=== PATIENT | female | born 1990 | race Caucasian/White ===

== ENCOUNTER 2019-11-25 20:35 | Emergency (ER) | payer BC, SELFPAY ==
[2019-11-25 20:36] VITALS: BP 121/82; PULSE 68; RESP 16; TEMP 36.9; O2SAT 97; BMI 28.3
[2019-11-25 20:50] VITALS: BP 117/77; PULSE 103; RESP 18; TEMP 36.8; O2SAT 99; BMI 28.3
--- NOTE | 2019-11-25 20:58 | HMH.EDUTC ---
[facility] [place]position Condition on Discharge: Good Time of Disposition: 21:11 <Shalini Pal E - Last Filed: 11/25/19 20:58> <Afshin Sanchez Addie - Last Filed: 11/25/19 23:41> Clinical Impression: Abdominal pain Qualifiers: Abdominal location: unspecified location Qualified Code(s): R10.9 - Unspecified abdominal pain Disposition: Home, Self-Care Instructions: DI for Acute Abdomen Additional Instructions: will need pcp and gi consult - recheck if needed Prescriptions: Dicyclomine HCl [Bentyl 10mg capsule] 10 mg PO TID #15 cap Transmission Status: Pending to [id number] Referrals: PCP,No [Primary Care Provider] - Medical Decision Making - Braxton Inquiry Pt receiving controlled substance: No Braxton was queried for this patient: No <Shalini Pal - Last Filed: 11/25/19 20:58> - Medical Records Medical records reviewed: Yes: I reviewed the patient's medical records. - Lab Data Lab results reviewed: Yes: I reviewed the patient's lab results. Result diagrams: 11/25/19 21:20 11/25/19 21:20 - CT Data CT Scan: Abdomen, Pelvis Time Received: 23:[address] Reviewed: Yes: I have viewed the radiologist's interpretation Preliminary Findings: Abnormal (nonspecific) <Afshin Sanchez Addie - Last Filed: 11/25/19 23:41> Vital Signs: 11/25/19 20:36 11/25/19 20:50 Temperature 98.5 F 98.3 F Temperature Source Oral Temporal Artery Scan Pulse Rate [Right Brachial] 68 103 H Respiratory Rate 16 18 Blood Pressure [Right Arm] 121/82 117/77 Blood Pressure Mean [Right Arm] 95 90 Blood Pressure Source [Right Arm] Automatic Cuff Automatic Cuff Blood Pressure Position [Right Arm] Sitting Sitting 02 Sat by Pulse Oximetry 97 99 Oxygen Delivery Method Room Air Room Air - Lab Data Lab Results 11/25/19 20:42: Urine Color Yellow, Urine Appearance Clear, Urine pH 6.0, Ur Specific [place] 1.025, Urine Protein Negative, Urine Glucose (UA) Negative, Urine Ketones Trace, Urine Blood 2+, Urine Nitrate Negative, Urine Bilirubin Negative, Urine Urobilinogen 1, Ur Leukocyte Esterase Trace, Tst Clinic Negative 11/25/19 21:20: WBC 7.7, RBC 4.23, Hgb 13.9, Hct 40.8, MCV 96.6, MCH 32.9 H, MCHC 34.1, RDW 12.6, Plt Count 329, MPV 7.5, Neut % (Auto) 47.6, Lymph % (Auto) 43.3, [place] % (Auto) 5.9, Eos % (Auto) 2.6, Baso % (Auto) 0.6, Neut # (Auto) 3.7, Lymph # (Auto) 3.3, [place] # (Auto) 0.5, Eos # (Auto) 0.2, Baso # (Auto) 0.1 11/25/19 21:20: Sodium 141, Potassium 3.9, Chloride 106, Carbon Dioxide 27, Anion Gap 11.9, BUN 15, Creatinine 0.80, Estimated Creat Clear 120, Estimated GFR 85, Est GFR ( Amer) 103, Glucose 106 H, Calcium 9.2, Total Bilirubin 0.4, AST 26, ALT 25, Alkaline Phosphatase 73, Total Protein 7.1, Albumin 4.3, Globulin 2.8, Albumin/Globulin Ratio 1.5, Amylase 82, Lipase 155 Orders (Tests/Meds): ED MEDICATIONS Generic Name Dose Route Start Last Admin Trade Name Freq PRN Reason Stop Dose Admin Sodium Chloride 1,000 mls @ 999 mls/hr 11/25/19 21:30 Sod Chlor 0.9% 1000ml Bag IV 11/25/19 22:30 .Q1H1M KEN Sodium Chloride 8 ml 11/25/19 21:23 11/25/19 21:34 Sodium Chloride 0.9% 10ml Vial IV 12/25/19 21:22 8 ml NEEDED PRN Administration dilute pepcid Discontinued Medications Generic Name Dose Route Start Last Admin Trade Name Freq PRN Reason Stop Dose Admin Famotidine 20 mg 11/25/19 21:23 11/25/19 21:34 Pepcid 20mg/2ml Vial IV 11/25/19 21:24 20 mg ONCE ONE Administration Ioversol 75 ml 11/25/19 21:42 11/25/19 21:43 Rad-Optiray 350 100ml Vial IV 11/25/19 21:43 75 ml ONCE ONE Administration Protocol Ketorolac Tromethamine 30 mg 11/25/19 21:23 11/25/19 21:34 Toradol 30mg/Ml Vial IV 11/25/19 21:24 30 mg ONCE ONE Administration Metoclopramide HCl 10 mg 11/25/19 21:23 11/25/19 21:34 Reglan 10mg/2ml Vial IVP 11/25/19 21:24 10 mg ONCE ONE Administration Morphine Sulfate 4 mg 11/25/19 23:30 11/25/19 23:32 Morphine 4mg/Ml Syr
[2019-11-25 21:00] LABS: Apearance,Urine Clear (Clear); Bilirubin,Urine Negative (Negative); Blood, Urine 2+ (Negative); Color,Urine Yellow (Yellow); Glucose,Urine (UA) Negative (Negative); Ketones,Urine TRACE (Negative); Protein,Urine Negative (Negative); Specific Gravity, Urine 1.025 (1.005-1.030); UTC Leukocyte Esterase,Urine Trace (Negative); UTC Nitrate,Urine Negative (Negative); UTC Pregnancy Test, Urine Negative (Negative); Urobilinogen,Urine 1 EU/dl (0.2)
--- NOTE | 2019-11-25 21:11 | CT_ITS ---
PROCEDURE: CT ABDOMEN PELVIS W CON CLINICAL INDICATION: LLQ pain abdominal pain, left lower quadrant pain and diarrhea COMPARISON: ABDPELW/O CT ABD PELVIS W/O CONTRAST from 02/06/2014 TECHNIQUE: IV Contrast: 75ML OPTIRAY 350 Oral Contrast None Axial images obtained with sagittal and coronal reformats. All CT scans at the facility use one or more dose reduction, viz: automated exposure control, ma/kV adjustment per patient size (including targeted exams where dose is matched to indication, i.e. head), or iterative reconstruction technique. FINDINGS: LOWER THORAX: No acute finding ABDOMEN & PELVIS: The liver, spleen, pancreas, adrenal glands, have an unremarkable appearance. No renal or ureteral calculi. Sub cm hypodensity is present in the left kidney anteriorly nonspecific too small to categorize possibly related to cyst. There is a moderate amount of retained colonic feces. No intestinal obstruction or free air. There are fluid-filled loops of small bowel with questionable bowel wall enhancement in the lower abdomen raising the suspicion enteritis. No evidence of appendicitis. There is dilatation of the adnexal veins left greater than right and left gonadal vein which may be seen with pelvic congestion syndrome IMPRESSION: 1. Possible enteritis 2. Moderate amount of retained colonic feces. 3. Prominent adnexal veins and left gonadal vein which may be seen with pelvic congestion syndrome Dictated by: Yayo Mittal MD 11/26/2019 05:53 Electronically signed by Yayo Mittal MD in [place] 11/26/2019 05:53
[2019-11-25 21:31] LABS: Basophils # 0.1 K/mm3 (0-0.2); Basophils % 0.6 % (0.1-2.0); Eosinophils # 0.2 K/mm3 (0.0-0.4); Eosinophils % 2.6 % (0.1-12.0); Hematocrit 40.8 % (37.0-47.0); Hemoglobin 13.9 g/dL (12.2-16.2); Lymphocytes # 3.3 K/mm3 (0.7-4.5); Lymphocytes % 43.3 % (10-50); Mean Corpuscular HGB Conc 34.1 g/dL (31.8-35.4); Mean Corpuscular Hemoglobin 32.9 pg (27.0-31.2); Mean Corpuscular Volume 96.6 fl (81-99); Mean Platelet Volume 7.5 fl (7.4-10.4); Monocytes # 0.5 K/mm3 (0.1-1.0); Monocytes % 5.9 % (1.7-9.3); Neutrophils # 3.7 K/mm3 (1.8-7.8); Neutrophils % 47.6 % (37.0-80.0); Platelet Count 329 K/mm3 (142-424); Red Blood Count 4.23 M/mm3 (4.20-5.40); Red Cell Distribution Width 12.6 % (11.5-17.5); White Blood Count 7.7 K/mm3 (4.8-10.8)
[2019-11-25 21:37] LABS: Chloride 106 mmol/L (98-107)
[2019-11-25 21:38] LABS: Potassium 3.9 mmoL/L (3.5-5.1); Sodium 141 mmol/L (136-145)
[2019-11-25 21:40] LABS: Alanine Aminotransferase 25 U/L (12-78); Alkaline Phosphatase 73 U/L (38-126); Amylase 82 U/L (30-110); Aspartate Amino Transferase 26 U/L (14-36); Bilirubin,Total 0.4 mg/dl (0.2-1.3); Blood Urea Nitrogen 15 mg/dl (7-17); Creatinine Clearance Estimated 120 mL/min (50-200); Estimated Glomerular Filt Rate 85 ml/min (>60); GFR (African American) 103 ML/MIN (>60); Lipase 155 U/L (23-300)
[2019-11-25 21:41] LABS: Albumin Level 4.3 g/dl (3.5-5.0); Albumin/Globulin Ratio 1.5 (1.1-1.8); Calcium 9.2 mg/dl (8.4-10.2); Globulin 2.8 g/dL (1.3-3.2); Glucose 106 mg/dl (74-100); Total Protein,Serum 7.1 g/dl (6.3-8.2)
[2019-11-25 21:49] LABS: Anion Gap 11.9 mEq/L (5-15); Carbon Dioxide 27 mmol/L (22.0-30.0)
--- NOTE | 2019-11-25 23:23 | PC.NURSE ---
pt ambulated to the restroom independently at this time
[2019-11-25 23:47] VITALS: BP 134/70; PULSE 67; RESP 14; TEMP 36.9; O2SAT 100
== END 2019-11-25 23:49 | disposition home or self-care (01) ==
LOC: UTC 20:42 → ER 21:03
PROVIDERS: Nurse Practitioner; Emergency Provider Emergency Medicine
DX: R10.32 Left lower quadrant pain (principal); Z88.1 Allergy status to other antibiotic agents; R73.9 Hyperglycemia, unspecified
CPT/HCPCS: 74177; 80053; 81003; 81025; 82150; 83690; 85025; 96365; 96375; 99284; J2405; Q9967

== ENCOUNTER → 2020-08-03 16:39 | Outpatient (CLI) | payer BC, SELFPAY ==
[2020-08-03 18:01] LABS: HCG Qualitative, Serum Negative (Negative)
[2020-08-03 18:59] LABS: Coronavirus 19 IgG Antibody Negative (Negative); Coronavirus 19 IgM Antibody Negative (Negative)
== END ==
PROVIDERS: Visit Provider Internal Medicine Gastroenterology
DX: Z01.818 Encounter for other preprocedural examination (principal); Z20.822 Contact with and (suspected) exposure to COVID-19; Z12.11 Encounter for screening for malignant neoplasm of colon
CPT/HCPCS: 36415; 84703; 86328

== ENCOUNTER 2020-08-05 11:05 | Day surgery (SDC) | payer BC, SELFPAY ==
[2020-08-03 09:15] VITALS: BMI 26.5
[2020-08-05] VITALS (9 sets, daily range): BP systolic 98–130; BP diastolic 53–72; PULSE 58–78; RESP 14–18; TEMP 36.6–36.8; O2SAT 97–99
--- NOTE | 2020-08-05 12:14 | HMH.ANESCL ---
[facility] Anesthesia Checklist - Patient Identification Patient Identification: Arm Band - Structural Data Admitted From: Home Planned Operative Procedure/s: Colonsocopy Consent for Planned Operative Procedure(s) Verified: Yes - NPO Status Verified Time NPO: 00:00 - Airway Assessment Dentition: Good Dentition - Neurological Assessment Level of Consciousness: Awake Hx Seizures: No Numbness or tingling in extremities: No - Anesthesia Plan Anesthesia Risk discussed: Yes Anesthesia Plan: Verified ASA Class: I Anesthesia Type: MAC [facility] History I have reviewed the patient's past medical history: Yes Medical History: Denies:: Cancer, Diabetes Mellitus Type 1, Diabetes Mellitus Type 2, Internal Pacemaker, MRSA, Seizures *Have you ever received a pneumonia vaccine?: No *Have you received a flu vaccine this season?: Yes Anesthesia experience/problems:: None Other Surgeries: Yes: No Previous Surgery. No: Pacemaker Amputation: No Fractures: No - *Social History Last grade of school completed: Advanced degree Smoking Status: Never smoker Alcohol Intake: never Substance Use Type: denies use *Occupational Status:: employed Housing: house Household Members: spouse *Travel in the last 8 weeks: None Family Hx:: Non-contributory
--- NOTE | 2020-08-05 12:38 | HMH.PROC ---
[facility] Procedure Note Procedure Note:: Colonoscopy Procedure Report: Colonoscopy Endoscopist: [place] Valle II, MD Referring physician: None Date of Procedure: August 05, 2020 Equipment: Olympus 190 variable stiffness pediatric colonoscope Sedation: MAC sedation Indication: Mrs. Calvin is a 30-year-old female with left lower quadrant abdominal pain and a change in her bowel habits. She does report incomplete defecation. She also has loose and liquid stools that are not formed. Her CAT scan of the abdomen showed a marked amount of fecal retention. She improved a little bit with dicyclomine (Bentyl). She reports no constipation but does have obstipation. She has noted mucus with her stool but no blood. She does have moderate gassiness and bloating. She reports no abdominal pain or weight loss. She has no family history of colitis, Crohn's disease or colon cancer. She did have a negative IBD and celiac panels. This is her first colonoscopy performed for diagnostic purposes. Her CBC showed no anemia and she had normal liver and pancreatic chemistries on her chemistry panel. Procedure: Prior to the procedure, a history and physical exam was performed, and patient's medications and allergies were reviewed. The risks, benefits and alternatives of the sedation and procedure were discussed with the patient. All questions were answered and informed consent was obtained. The patient was brought to the procedure room. Patient identification and proposed procedure were verified by the physician and the nurse. The patient was placed in a left lateral decubitus position and the scope was passed under direct vision. Throughout the procedure, the patient's blood pressure, pulse, and oxygen saturations were monitored continuously. The colonoscopy was accomplished without difficulty. The patient tolerated the procedure well. Findings: On digital rectal examination there was normal rectal tone. There were no external hemorrhoids. The colonoscope was introduced through the anal canal to the rectum and advanced to the cecum. The ileocecal valve and appendiceal orifice were identified. The scope was advanced a short distance into the ileum which appeared grossly normal. The scope was then withdrawn into the colon. The cecum, ascending, transverse, descending, sigmoid and rectum were grossly normal. There was some colonic redundancy with colonic dysmotility. There were no mucosal abnormalities identified. Upon retroflexion within the rectum there were grade 1 internal hemorrhoids.The preparation was good throughout with [place] Preparation Score of 8 out of 9. The cecal time was 12 minutes. Impression: 1. Normal colonoscopy with intubation of the terminal ileum 2. Colonic redundancy with colonic dysmotility 3. Grade 1 internal hemorrhoids Plan: I will discuss the findings with the patient and family. I would avoid MiraLAX but just continue bulk fiber. I would consider continuation of dicyclomine or adding Viberzi. We will discuss dietary measures and treatment options.
--- NOTE | 2020-08-05 12:41 | HMH.ANESI ---
[facility] Anesthesia Record Part I Intake, IV Amount: 200 Estimated blood loss (mL): 0 Urine output (mL): 0 Blood Pressure: 130/72 SaO2: 99 Pulse Rate: 77 Respiratory Rate: 14 Temperature: 98 F Patient is:: Drowsy Stable to PACU at:: 12:39
--- NOTE | 2020-08-05 13:57 | P.PN_ITS ---
[facility] Anesthesia Record Part II Discharge Time: 13:26 Destination: Surgical Day Care (OP Surgery) PACU nurse assessment reviewed?: Yes Patient Condition:: Good Anesthesia Complications:: None Swallowing reflex intact?: Yes Cyanosis?: No Blood Pressure: 123/70 Pulse Rate: 71 Temperature: 98.3 F Mental Status: Alert & Oriented Pain level:: 0 Nausea and/or vomitting:: None Intake, IV Amount: 200
== END 2020-08-05 13:29 | disposition home or self-care (01) ==
PROVIDERS: Visit Provider Internal Medicine Gastroenterology
PROC: 0DJD8ZZ Inspection of Lower Intestinal Tract, Via Natural or Artificial Opening Endoscopic (ICD-10-PCS; CPT 45378; principal; 2020-08-05 12:00)
DX: K59.01 Slow transit constipation (principal); K56.2 Volvulus; K64.0 First degree hemorrhoids; Z85.07 Personal history of malignant neoplasm of pancreas; Z79.899 Other long term (current) drug therapy; Z88.1 Allergy status to other antibiotic agents
CPT/HCPCS: 45378

== ENCOUNTER 2021-01-02 09:15 | Emergency (ER) | payer BC, SELFPAY ==
[2021-01-02 09:15] VITALS: BP 122/74; PULSE 74; RESP 16; TEMP 36.8; O2SAT 98; BMI 27.1
--- NOTE | 2021-01-02 09:35 | HMH.EDUTC ---
[facility] [place] Clinical Impression: Viral syndrome, Bronchitis Pharyngitis Qualifiers: Pharyngitis/tonsillitis etiology: unspecified etiology Qualified Code(s): J02.9 - Acute pharyngitis, unspecified Disposition: Home, Self-Care Condition on Discharge: Good Instructions: DI for Acute Bronchitis, DI for COVID-19 (Suspected or Confirmed ), Preventing the Spread of Coronavirus Discharge Instructions Additional Instructions: Drink plenty of fluids. Take tylenol or ibuprofen for pain or fever. Take the medications as directed. Follow up with your regular doctor. GO TO THE ER FOR ANY WORSENING SYMPTOMS Quarantine until you know the results of your covid-19 test. If it is positive, the health department should call you and give you further instructions about your length of Quarantine and other thing. The cough medication (promethazine dm) will make you drowsy, so don't drive or operate heavy machinery after taking it. Prescriptions: Brompheniramine/Pseudoephed/Dm [Bromfed Dm Cough Syrup] 5 ml PO Q6HP PRN #240 syrup PRN Reason: Cough Transmission Status: Received by [id number] Ondansetron [Zofran 4mg ODT] 4 mg PO Q8HP PRN #20 tab.rapdis PRN Reason: Nausea Transmission Status: Received by [facility] Cefdinir [Omnicef 300mg Capsule] 300 mg PO BID #20 cap Transmission Status: Received by [facility] Referrals: Provider,Referral, [Primary Care Provider] - Forms: Work/School Release Time of Disposition: 09:39 Medical Decision Making - Medical Records Medical records reviewed: No: I reviewed the patient's medical records. - Braxton Inquiry Pt receiving controlled substance: No Vital Signs: 01/02/21 09:15 01/02/21 09:54 Temperature 98.3 F 98.5 F Temperature Source Oral Oral Pulse Rate 84 Pulse Rate [Right] 74 Respiratory Rate 16 16 Blood Pressure 124/70 Blood Pressure [Right Arm] 122/74 Blood Pressure Mean [Right Arm] 90 Blood Pressure Source Automatic Cuff Blood Pressure Source [Right Arm] Automatic Cuff Blood Pressure Position Sitting Blood Pressure Position [Right Arm] Sitting 02 Sat by Pulse Oximetry 98 Oxygen Delivery Method Room Air - Lab Data Lab results reviewed: Yes: I reviewed the patient's lab results. Orders (Tests/Meds): ORDERS Category Date Time Status Full Resp Panel w/COVID ([facility]) Routine Lab 01/02/21 09:40 [place] [facility] [place] - General Stated complaint: sore throat, body aches, chills Time Seen by Provider: 01/02/21 09:20 Mode of Arrival: Ambulatory Source of Information: Patient Limitations: No Limitations Description of Symptoms (Recalled from Triage Doc. by RN): pt c/o body aches, cough, congestion, and overall not feeling well HEENT Symptoms (Recalled from RN notes): No Resp Symptoms (Recalled from RN notes): No Skin Symptoms (Recalled from RN notes): No MS Symptoms (Recalled from RN notes): No Functional Status (Recalled from RN notes): na - History of Present Illness Provider Complaint: She states that for the past 2 days she has had sinus and chest congestion, scratchy sore throat, and she has had chilling at night. She denies documented fever. She has not been vaccinated against covid-19. - Related Data Home Medications Medication Instructions Recorded Confirmed Norelgestromin/Ethin.estradiol 1 each TD NEEDED PRN 11/25/19 08/05/20 [Xulane Patch] Dicyclomine HCl [Bentyl 10mg 10 mg PO TID 08/02/20 08/05/20 capsule] Previous Rx's Medication Instructions Recorded Brompheniramine/Pseudoephed/Dm 5 ml PO Q6HP PRN #240 syrup 01/02/21 [Bromfed Dm Cough Syrup] Cefdinir [Omnicef 300mg Capsule] 300 mg PO BID #20 cap 01/02/21 Ondansetron [Zofran 4mg ODT] 4 mg PO Q8HP PRN #20 tab.rapdis 01/02/21 Allergies Allergy/AdvReac Type Severity Reaction Status Date / Time amoxicillin [AMOXICILLIN] Allergy Mild Verified 08/02/20 14:35 erythromycin base Allergy Mild Verif
[2021-01-02 09:54] VITALS: BP 124/70; PULSE 84; RESP 16; TEMP 36.9; O2SAT 98
[2021-01-02 09:58] LABS: Adenovirus,PCR Not Detected (NotDetected); Bordetella Pertussis Not Detected (NotDetected); Chlamydophila Pneumoniae, PCR Not Detected (NotDetected); Coronavirus 229E Not Detected (NotDetected); Coronavirus NL63 Not Detected (NotDetected); Coronavirus OC43 Not Detected (NotDetected); Coronovirus HKU1,PCR Not Detected (NotDetected); Human Metapneumovirus Not Detected (NotDetected); Influenza A, PCR Not Detected (NotDetected); Influenza AH1, 2009 Not Detected (NotDetected); Influenza AH1, PCR Not Detected (NotDetected); Influenza AH3,PCR Not Detected (NotDetected); Influenza B, PCR Not Detected (NotDetected); Mycoplasma Pneumoniae, PCR Not Detected (NotDetected); Parainfluenza 1, PCR Not Detected (NotDetected); Parainfluenza 2, PCR Not Detected (NotDetected); Parainfluenza 3, PCR Not Detected (NotDetected); Parainfluenza 4, PCR Not Detected (NotDetected); Respiratory Syncytial Virus Not Detected (NotDetected); Rhinovirus/Enterovirus Not Detected (NotDetected)
[2021-01-02 11:26] LABS: Coronavirus 19, PCR Detected (NotDetected)
--- NOTE | 2021-01-02 11:47 | PC.NURSE ---
Notified pt of positive covid results
[2021-01-03 09:51] LABS: UTC Strep Screen (Rapid) Negative (Negative)
== END 2021-01-02 09:54 | disposition home or self-care (01) ==
PROVIDERS: Emergency Provider Nurse Practitioner Family
DX: U07.1 COVID-19 (principal); J20.9 Acute bronchitis, unspecified
CPT/HCPCS: 87581; 87633; 87798; 87880; 99203; G0463

== ENCOUNTER 2021-03-22 11:21 | Emergency (ER) | payer BC, SELFPAY ==
[2021-03-22 13:03] VITALS: BP 122/75; PULSE 81; RESP 16; TEMP 36.8; O2SAT 100; BMI 25.8
[2021-03-22 13:10] LABS: UTC Strep Screen (Rapid) Negative (Negative)
--- NOTE | 2021-03-22 13:37 | HMH.EDUTC ---
[facility] [place] Clinical Impression: Viral syndrome Pharyngitis Qualifiers: Pharyngitis/tonsillitis etiology: unspecified etiology Qualified Code(s): J02.9 - Acute pharyngitis, unspecified Disposition: Home, Self-Care Condition on Discharge: Good Instructions: DI for Viral Syndrome, DI for COVID-19 (Suspected or Confirmed ), Preventing the Spread of Coronavirus Discharge Instructions Additional Instructions: Drink plenty of fluids. Take tylenol or ibuprofen for pain or fever. Take the medications as directed. Follow up with your regular doctor. GO TO THE ER FOR ANY WORSENING SYMPTOMS Quarantine until you know the results of your covid-19 test. If it is positive, the health department should call you and give you further instructions about your length of Quarantine and other things. Notify your school or workplace of your results and follow their instructions regarding return to work/school. Prescriptions: Brompheniramine/Pseudoephed/Dm [Bromfed Dm Cough Syrup] 5 ml PO Q6HP PRN #240 ml PRN Reason: Cough Transmission Status: Received by [facility] predniSONE [Deltasone 10mg tablet] 10 mg PO BID 4 Days #8 tab Transmission Status: Received by [facility] Referrals: Provider,Referral, [Primary Care Provider] - Forms: Work/School Release Time of Disposition: 13:44 Medical Decision Making - Medical Records Medical records reviewed: No: I reviewed the patient's medical records. - Braxton Inquiry Pt receiving controlled substance: No Vital Signs: 03/22/21 13:03 03/22/21 13:50 Temperature 98.3 F 98.3 F Temperature Source Oral Pulse Rate 81 Pulse Rate [Left] 81 Respiratory Rate 16 16 Blood Pressure 122/75 Blood Pressure [Right Arm] 122/75 Blood Pressure Mean [Right Arm] 90 02 Sat by Pulse Oximetry 100 - Lab Data Lab results reviewed: Yes: I reviewed the patient's lab results. Lab Results 03/22/21 13:08: Strep Scn Rapid Clinic Negative 03/22/21 13:44: Chlamy pneumoniae PCR Not detected, Adenovirus (PCR) Not detected, B. pertussis DNA (PCR) Not detected, Coronavirus OC43 (PCR) Not detected, Coronavirus HKU1 (PCR) Not detected, Coronavirus 229E (PCR) Not detected, SARS-CoV-2 (PCR) Not detected, Coronavirus NL63 (PCR) Not detected, Human Metapneumovir PCR Not detected, Influenza A (H1) PCR Not detected, Influ A (H1N1/09) PCR Not detected, Influenza A (H3) PCR Not detected, Influenza Type A (PCR) Not detected, Influenza Type B (PCR) Not detected, M. pneumoniae (PCR) Not detected, Parainfluenza 1 (PCR) Not detected, Parainfluenza 2 (PCR) Not detected, Parainfluenza 3 (PCR) Not detected, Parainfluenza 4 (PCR) Not detected, RSV (PCR) Not detected, Entero/Rhino (PCR) Not detected Orders (Tests/Meds): ORDERS Category Date Time Status Strep Screen Confirmation Stat Micro 03/22/21 13:08 Received [facility] [place] H[place] - General Stated complaint: bilateral ear pain/pressure Time Seen by Provider: 03/22/21 13:37 Mode of Arrival: Ambulatory Source of Information: Patient Limitations: No Limitations Description of Symptoms (Recalled from Triage Doc. by RN): pt states her ears feel full. pt also c/o a sore throat. ongoing x2 days. HEENT Symptoms (Recalled from RN notes): Yes (fluid on ears and sore throat) Resp Symptoms (Recalled from RN notes): No Skin Symptoms (Recalled from RN notes): No MS Symptoms (Recalled from RN notes): No Functional Status (Recalled from RN notes): na - History of Present Illness Provider Complaint: She c/o sore throat and ear pressure for the past 2 days. She denies chest congestion. She has had a dry cough at times. She has not been vaccinated against covid-19. She works as a nurse in a hospital. - Related Data Home Medications Medication Instructions Recorded Confirmed Norelgestromin/Ethin.estradiol 1 each TD NEEDED PRN 11/25/19 08/05/20 [Xulane Patch] Dicyclomine HCl [Bentyl 10mg 10 mg PO TID 08/02/20 08/05/20 capsule]
[2021-03-22 13:47] LABS: Adenovirus,PCR Not Detected (NotDetected); Bordetella Pertussis Not Detected (NotDetected); Chlamydophila Pneumoniae, PCR Not Detected (NotDetected); Coronavirus 19, PCR Not Detected (NotDetected); Coronavirus 229E Not Detected (NotDetected); Coronavirus NL63 Not Detected (NotDetected); Coronavirus OC43 Not Detected (NotDetected); Coronovirus HKU1,PCR Not Detected (NotDetected); Human Metapneumovirus Not Detected (NotDetected); Influenza A, PCR Not Detected (NotDetected); Influenza AH1, 2009 Not Detected (NotDetected); Influenza AH1, PCR Not Detected (NotDetected); Influenza AH3,PCR Not Detected (NotDetected); Influenza B, PCR Not Detected (NotDetected); Mycoplasma Pneumoniae, PCR Not Detected (NotDetected); Parainfluenza 1, PCR Not Detected (NotDetected); Parainfluenza 2, PCR Not Detected (NotDetected); Parainfluenza 3, PCR Not Detected (NotDetected); Parainfluenza 4, PCR Not Detected (NotDetected); Respiratory Syncytial Virus Not Detected (NotDetected); Rhinovirus/Enterovirus Not Detected (NotDetected)
[2021-03-22 13:50] VITALS: BP 122/75; PULSE 81; RESP 16; TEMP 36.8
== END 2021-03-22 13:57 | disposition home or self-care (01) ==
PROVIDERS: Emergency Provider Nurse Practitioner Family
DX: B34.9 Viral infection, unspecified (principal); J02.9 Acute pharyngitis, unspecified
CPT/HCPCS: 87581; 87632; 87798; 87880; 99203; C9803; G0463; U0003; U0005

== ENCOUNTER 2021-10-04 21:32 | Emergency (ER) | payer OTHER, SELFPAY ==
--- NOTE | 2021-10-04 21:23 | ECG_ITS ---
APPROVED REPORT Exam: Resting ECG HR:133 bpm ECG Measurements Heart Rate 133 AXES IN 131 P 71 QRSd 89 QRS 61 QT 332 T 36 QTc 410 Conclusion SINUS TACHYCARDIA POSSIBLE RIGHT VENTRICULAR CONDUCTION DELAY [RSR (QR) IN V1/V2] NONSPECIFIC T-WAVE ABNORMALITY ABNORMAL RHYTHM ECG UNCONFIRMED REPORT Electronically signed by : Jose A Snyder MD 10/06/2021 10:31:55
[2021-10-04 21:32] VITALS: BP 140/84; PULSE 140; RESP 16; TEMP 37.6; O2SAT 98; BMI 24.7
--- NOTE | 2021-10-04 21:38 | XR_ITS ---
PROCEDURE INFORMATION: Exam: XR Chest Exam date and time: 10/04/2021 9:37 PM Age: 31 years old Clinical indication: Pain; Other: Tachycardic; Chest pressure; Additional info: Tachy TECHNIQUE: Imaging protocol: XR of the chest. Views: 2 views. COMPARISON: CT ABDOMEN PELVIS W CON 11/25/2019 9:26 PM FINDINGS: Lungs: Unremarkable. No consolidation. Pleural spaces: No pleural effusion. No pneumothorax. Heart/Mediastinum: Normal heart size. Bones/joints: Unremarkable. Other findings: A round 8 mm opacity projects over the trachea on the frontal image, but is not seen on the lateral view, presumably external to the patient. IMPRESSION: No acute finding.
[2021-10-04 21:42] LABS: Microscopic, Urine URINE MICROSCOPIC (MICROSCOPIC)
--- NOTE | 2021-10-04 21:45 | PC.NURSE ---
Pt gone to RAD
--- NOTE | 2021-10-04 21:45 | PC.NURSE ---
PT to rad
[2021-10-04 21:48] LABS: Urine Pregnancy, HCG Qual. Negative (Negative)
--- NOTE | 2021-10-04 21:48 | PC.NURSE ---
Pt back from RAD
[2021-10-04 21:49] LABS: Appearance,Urine CLEAR (Clear); Bilirubin,Urine Negative (Negative); Blood, Urine Negative (Negative); Color,Urine YELLOW (Yellow); Glucose,Urine (UA) Negative (Negative); Ketones,Urine Negative (Negative); Leukocyte Esterase,Urine Negative (Negative); Nitrate,Urine Negative (Negative); PH,Urine 8.5 (5.0-8.5); Protein,Urine Negative (Negative); Specific Gravity, Urine 1.015 (1.005-1.030); Urobilinogen,Urine 0.2 EU/dl (0.2)
[2021-10-04 22:00] LABS: Anion Gap 15.4 mEq/L (5-15); Blood Urea Nitrogen 11 mg/dl (7-17); Calcium 10.5 mg/dl (8.4-10.2); Carbon Dioxide 23 mmol/L (22.0-30.0); Chloride 102 mmol/L (98-107); Creatinine Clearance Estimated 118 mL/min (50-200); Estimated Glomerular Filt Rate 98 ml/min (>60); GFR (African American) 119 ML/MIN (>60); Glucose 93 mg/dl (74-100); Potassium 3.4 mmoL/L (3.5-5.1); Sodium 137 mmol/L (136-145)
--- NOTE | 2021-10-04 22:01 | PC.NURSE ---
Pt given warm blanket for comfort. No needs at this time.
--- NOTE | 2021-10-04 22:05 | HMH.EDARPALP ---
ED Disposition Clinical Impression: Palpitations, Sinus tachycardia, Streptococcal pharyngitis Disposition: Home, Self-Care Condition on Discharge: Good Instructions: DI for Strep Throat Additional Instructions: use meds and see pcp for follow up Prescriptions: Cefdinir [Omnicef 300mg Capsule] 300 mg PO BID #14 cap Transmission Status: Pending to [id number] Referrals: Provider,Referral, [Primary Care Provider] - - Critical Care Critical Care Time: No Attestation: On 10/04/21, the high probability of a clinically significant, sudden or life threatening deterioration of the following system(s) required my full and direct attention, intervention and personal management. The time I documented below is in addition to time spent performing reported procedures but includes the following listed in this critical care notation. Medical Decision Making - Medical Records Medical records reviewed: Yes: I reviewed the patient's medical records. - Braxton Inquiry Pt receiving controlled substance: No Vital Signs: 10/04/21 21:32 10/04/21 22:23 10/04/21 23:24 Temperature 99.7 F H Temperature Source Oral Pulse Rate 109 H 102 H Pulse Rate [Right] 140 H Respiratory Rate 16 18 17 Blood Pressure 105/70 L 100/58 L Blood Pressure [Right Arm] 140/84 Blood Pressure Mean 76 65 Blood Pressure Mean [Right Arm] 102 Blood Pressure Source [Right Arm] Automatic Cuff Blood Pressure Position [Right Arm] Sitting 02 Sat by Pulse Oximetry 98 100 100 Oxygen Delivery Method Room Air - Lab Data Lab results reviewed: Yes: I reviewed the patient's lab results. Lab Results 10/04/21 21:37: Urine Color Yellow, Urine Appearance Clear, Urine pH 8.5, Ur Specific [place] 1.015, Urine Protein Negative, Urine Glucose (UA) Negative, Urine Ketones Negative, Urine Blood Negative, Urine Nitrate Negative, Urine Bilirubin Negative, Urine Urobilinogen 0.2, Ur Leukocyte Esterase Negative, Urine RBC None, Urine WBC None, Ur Squamous Epith Cells Occasional, Urine Bacteria None 10/04/21 21:37: Urine HCG, Qual Negative 10/04/21 21:43: WBC 16.5 H, RBC 4.32, Hgb 13.9, Hct 40.9, MCV 94.7, MCH 32.2 H, MCHC 34.0, RDW 12.9, Plt Count 329, MPV 7.8, Neut % (Auto) 80.5 H, Lymph % (Auto) 12.2, [place] % (Auto) 6.0, Eos % (Auto) 0.4, Baso % (Auto) 0.9, Neut # (Auto) 13.3 H, Lymph # (Auto) 2.0, [place] # (Auto) 1.0, Eos # (Auto) 0.1, Baso # (Auto) 0.2, Total Counted 100, Neutrophils % (Manual) 81 H, Lymphocytes % (Manual) 13, Monocytes % (Manual) 6, Platelet Estimate Normal 10/04/21 21:43: Sodium 137, Potassium 3.4 L, Chloride 102, Carbon Dioxide 23, Anion Gap 15.4 H, BUN 11, Creatinine 0.70, Estimated Creat Clear 118, Estimated GFR 98, Est GFR ( Amer) 119, Glucose 93, Calcium 10.5 H, Troponin I < 0.01 10/04/21 21:43: TSH 0.61, Thyroxine (T4) 10.1 10/04/21 22:40: Group A Strep Rapid Positive A Result diagrams: 10/04/21 21:43 10/04/21 21:43 Orders (Tests/Meds): ED MEDICATIONS Generic Name Dose Route Start Last Admin Trade Name Freq PRN Reason Stop Dose Admin Sodium Chloride 1,000 mls @ 999 mls/hr 10/04/21 21:45 10/04/21 21:55 Sod Chlor 0.9% 1000ml Bag IV 10/04/21 22:45 999 mls/hr .Q1H1M KEN Administration Sodium Chloride 10 ml 10/04/21 21:38 Sodium Chloride 0.9% 10ml Flush Syringe IV 11/03/21 21:37 NEEDED PRN Maintain IV Site Discontinued Medications Generic Name Dose Route Start Last Admin Trade Name Freq PRN Reason Stop Dose Admin Aspirin 324 mg 10/04/21 21:38 10/04/21 21:54 Aspirin 81mg Chewable Tablet PO 10/04/21 21:39 324 mg ONCE ONE Administration Ceftriaxone Sodium 1 gm/ 50 mls @ 100 mls/hr 10/04/21 23:20 10/04/21 23:22 Sodium Chloride IV 10/04/21 23:49 100 mls/hr ONCE ONE Administration ORDERS Category Date Time Status Rapid PCR Covid and Flu A/B Stat Lab 10/04/21 22:40 Received Troponin I Q3H Lab 10/05/21 00:45 Ordered Troponin I Q3H Lab 10/05/21 03
[2021-10-04 22:13] LABS: Squamous Epithelial Cell,Urine Occasional #/hpf (0-5)
[2021-10-04 22:17] LABS: Troponin I < 0.01 ng/ml (0.00-0.034)
[2021-10-04 22:18] LABS: Basophils # 0.2 K/mm3 (0-0.2); Basophils % 0.9 % (0.1-2.0); Eosinophils # 0.1 K/mm3 (0.0-0.4); Eosinophils % 0.4 % (0.1-12.0); Hematocrit 40.9 % (37.0-47.0); Hemoglobin 13.9 g/dL (12.2-16.2); Lymphocytes % 12.2 % (10-50); Mean Corpuscular Hemoglobin 32.2 pg (27.0-31.2); Mean Corpuscular Volume 94.7 fl (81-99); Mean Platelet Volume 7.8 fl (7.4-10.4); Neutrophils # 13.3 K/mm3 (1.8-7.8); Neutrophils % 80.5 % (37.0-80.0); Platelet Count 329 K/mm3 (142-424); Red Blood Count 4.32 M/mm3 (4.20-5.40); Red Cell Distribution Width 12.9 % (11.5-17.5); White Blood Count 16.5 K/mm3 (4.8-10.8)
[2021-10-04 22:23] VITALS: BP 105/70; PULSE 109; RESP 18; O2SAT 100
[2021-10-04 22:24] LABS: MANUAL DIFFERENTIAL MANUAL DIFFERENTIAL (MANUAL DIFF)
[2021-10-04 22:46] LABS: Coronavirus 19, PCR Not Detected (NotDetected); Influenza A, PCR Not Detected (NotDetected); Influenza B, PCR Not Detected (NotDetected)
[2021-10-04 23:02] LABS: Strep Scrn Group A (Rapid) Positive (Negative)
[2021-10-04 23:23] LABS: T4 (Thyroxine) 10.1 ug/dl (5.53-11.0)
[2021-10-04 23:24] VITALS: BP 100/58; PULSE 102; RESP 17; O2SAT 100
[2021-10-04 23:24] LABS: Lymphocytes % 13 % (10-50); Monocytes % 6 % (2-9); Neutrophils % 81 % (42-76); Platelet Estimate Normal; Total Cells Counted 100
--- NOTE | 2021-10-04 23:33 | PC.NURSE ---
Resp at bedside applying holter monitor
[2021-10-04 23:36] LABS: Thyroid Stimulating Hormone 0.61 uIU/mL (0.465-4.68)
[2021-10-05 00:26] VITALS: BP 112/60; PULSE 110; RESP 16; TEMP 37.2; O2SAT 98
== END 2021-10-05 00:27 | disposition home or self-care (01) ==
PROVIDERS: Emergency Provider Emergency Medicine
DX: J02.0 Streptococcal pharyngitis (principal); R00.2 Palpitations; Z88.1 Allergy status to other antibiotic agents
CPT/HCPCS: 71046; 80048; 81001; 81025; 84436; 84443; 84484; 85007; 85025; 87430; 93005; 93225; 93226; 96365; 96375; 99284; C9803; J0696; U0003; U0005

== ENCOUNTER 2022-02-17 15:17 | Emergency (ER) | payer OTHER, SELFPAY ==
--- NOTE | 2022-02-17 15:50 | EXP.UTC ---
Discharge Plan Disposition Patient Disposition: Home, Self-Care Condition: Good Prescriptions Prescriptions: New benzonatate [benzonatate] 100 mg capsule 100 mg PO TIDP PRN (Reason: Cough) Qty: 30 0RF methylprednisolone 4 mg Tablets,Dose Pack 4 mg PO DIRECTED Qty: 21 0RF cefdinir 250 mg/5 mL suspension for reconstitution 300 mg PO BID 10 Days Qty: 120 0RF No Action cefdinir 300 MG capsule 300 mg PO BID Qty: 14 0RF Referrals Follow up/Referrals: Provider,Referral, MD [Primary Care Provider] - See instructions Activity Restrictions/Add. Instructions Additional Instructions/Restrictions: Drink plenty of fluids. Take tylenol or ibuprofen for pain or fever. Take the medications as directed. Follow up with your regular doctor. GO TO THE ER FOR ANY WORSENING SYMPTOMS Clinical Impressions Clinical Impression: Bronchitis Stand Alone Forms Stand Alone Forms: Work/School Release Instructions Patient Instructions: Acute Bronchitis, DI for Acute Bronchitis Discharge ED Provider: Sherman Zapata [facility] General Stated complaint: cough Time Seen by Provider: 02/17/22 15:50 History of Present Illness Provider Complaint: She states that for the past 5 days she has had a worsening cough and chest congestion. Related Data Previous Rx's Medication Instructions Recorded cefdinir 300 mg capsule 300 mg PO BID #14 caps 10/04/21 benzonatate 100 mg capsule 100 mg PO TIDP PRN Cough #30 caps 02/17/22 cefdinir 250 mg/5 mL oral 300 mg (6 mL) PO BID 10 days #120 02/17/22 suspension mL methylprednisolone 4 mg tablets in 4 mg PO DIRECTED #21 tabs 02/17/22 a dose pack Allergies Allergy/AdvReac Type Severity Reaction Status Date / Time amoxicillin [AMOXICILLIN] Allergy Mild Verified 02/17/22 16:03 erythromycin base Allergy Mild Verified 02/17/22 16:03 [ERYTHROMYCIN BASE] [facility] Social History Smoking Status: Never smoker alcohol intake: never substance use type: denies use current occupational status: employed Travel in the last 8 weeks: None household members: spouse housing: house current occupation: RN caffeine: Yes ROS Obtained: Yes All systems reviewed & no additional complaints except as documented Constitutional Constitutional: Reports chills and Reports fever(s) Eyes Eyes: Denies eye discharge ENT Ears, Nose, Mouth, and Throat: Reports as per HPI Cardiovascular Cardiovascular: Denies chest pain Respiratory Respiratory: Denies chest congestion and Reports cough Gastrointestinal Gastrointestingal: Reports nausea; Denies abdominal pain, constipation, cramping, diarrhea or vomiting Musculoskeletal Musculoskeletal: Denies arthralgias Integumentary/Breasts Skin/Breast: Denies rash Neurologic Neurologic: Denies paresthesias Physical Exam General General appearance: alert and in no apparent distress Head Head exam: atraumatic, normocephalic and normal inspection Eye Eye exam: Present normal appearance, PERRL and EOMI ENT ENT exam: Present mucous membranes moist and normal external ear exam Expanded ENT Exam TM/Canal exam: Bilateral TM: erythema and bulging Nose exam: Absent sinus tenderness Mouth exam: Present normal external inspection; Absent drooling Teeth exam: Present normal inspection Throat exam: Present tonsillar erythema, tonsillomegaly and tonsillar exudate Neck Neck exam: Present normal inspection, full ROM and trachea midline; Absent tenderness, meningismus or lymphadenopathy Chest Chest inspection: Present normal inspection and symmetric chest wall rise; Absent tenderness Respiratory Respiratory exam: Present normal lung sounds bilaterally; Absent respiratory distress, wheezes or stridor Cardiovascular Cardiovascular exam: Present regular rate and normal rhythm; Absent systolic murmur or diastolic murmur Abdominal Exam Abdominal exam: Present soft and normal bowel
[2022-02-17 16:01] VITALS: BP 134/90; PULSE 87; RESP 16; TEMP 36.8; O2SAT 98; BMI 26.5
[2022-02-17 16:01] LABS: UTC Strep Screen (Rapid) Negative (Negative)
[2022-02-17 16:28] VITALS: BP 134/90; PULSE 87; RESP 16; TEMP 36.8
== END 2022-02-17 16:29 | disposition home or self-care (01) ==
PROVIDERS: Emergency Provider Nurse Practitioner Family
DX: R05.9 Cough, unspecified (principal); R09.89 Other specified symptoms and signs involving the circulatory and respiratory systems; R50.9 Fever, unspecified; Z79.899 Other long term (current) drug therapy; Z88.0 Allergy status to penicillin; Z88.1 Allergy status to other antibiotic agents; Z88.3 Allergy status to other anti-infective agents
CPT/HCPCS: 87880; 99213; G0463

== ENCOUNTER 2022-10-02 14:33 | Emergency (ER) | payer OTHER, SELFPAY ==
[2022-10-02 14:40] VITALS: BP 107/70; PULSE 73; RESP 18; TEMP 37.1; O2SAT 99; BMI 29.7
--- NOTE | 2022-10-02 15:08 | EXP.UTC ---
Discharge Plan Disposition Patient Disposition: Home, Self-Care Condition: Good Prescriptions Prescriptions: New polymyxin B sulf-trimethoprim [Polytrim] 10,000 unit- 1 mg/mL drops 2 drp ophthalmic (eye) Q6H 7 Days Qty: 10 0RF Rx Instructions: both eyes while awake; do not exceed 6 doses in 24 hours No Action atenolol 25 mg tablet 12.5 mg PO DAILY hydroxyzine HCl [Atarax] 25 mg Tablet 25 mg PO HS escitalopram oxalate 5 mg tablet 5 mg PO DAILY Label Comments: TAKE 1 TABLET BY MOUTH ONCE DAILY Referrals Follow up/Referrals: Provider,Referral, MD [Primary Care Provider] - See instructions Activity Restrictions/Add. Instructions Additional Instructions/Restrictions: Wash hands before and after applying drops to eyes Use drops as directed Follow up with your Eye Doctor if no improvement or any worsening of symptoms Clinical Impressions Clinical Impression: Conjunctivitis Qualifiers: Conjunctivitis type: unspecified Laterality: bilateral Qualified Code(s): H10.9 - Unspecified conjunctivitis Instructions Patient Instructions: Conjunctivitis, DI for Conjunctivitis Discharge ED Provider: Shalini Pal [facility] General Stated complaint: possible pink eye Mode of Arrival: Ambulatory Source of Information: Patient Limitations: No Limitations Time Seen by Provider: 10/02/22 15:08 Description of Symptoms (Recalled from Triage Doc. by RN): PATIENT C/O REDNESS AND DRAINAGE TO BILATERAL EYES SINCE THIS MORNING HEENT Symptoms (Recalled from RN notes): Yes Resp Symptoms (Recalled from RN notes): No Skin Symptoms (Recalled from RN notes): No MS Symptoms (Recalled from RN notes): No Functional Status (Recalled from RN notes): WNL History of Present Illness Provider Complaint: Patient states that when she woke up this morning both eyes was matted and draining States that she cleaned them up and they have continued to have drainage today and looking red thinks she may have pink eye Related Data Home Medications Medication Instructions Recorded Confirmed atenolol 25 mg tablet 12.5 mg PO DAILY Inappropriate 10/02/22 10/02/22 Sinus Tach escitalopram oxalate 5 mg tablet 5 mg PO DAILY Anxiety 10/02/22 10/02/22 hydroxyzine HCl 25 mg tablet 25 mg PO HS Anxiety 10/02/22 10/02/22 Previous Rx's Medication Instructions Recorded polymyxin B sulfate 10,000 2 drp ophthalmic (eye) Q6H 7 days 10/02/22 unit-trimethoprim 1 mg/mL eye #10 mL drops (Polytrim) Allergies Allergy/AdvReac Type Severity Reaction Status Date / Time amoxicillin [AMOXICILLIN] Allergy Mild Verified 02/17/22 16:03 erythromycin base Allergy Mild Verified 02/17/22 16:03 [ERYTHROMYCIN BASE] Worker's Comp Is this a Worker's Comp case?: No PFSH PFS Disclaimer: The information contained in this section may have been updated after the patient was seen, as this information can be updated by other users. Social History Smoking Status: Never smoker alcohol intake: never substance use type: denies use current occupational status: employed Travel in the last 8 weeks: None household members: spouse housing: house current occupation: RN caffeine: Yes ROS Obtained: Yes All systems reviewed & no additional complaints except as documented and Yes Systems reviewed as appropriate & no additional complaints except as documented Constitutional Constitutional: Reports system reviewed and no additional complaints, except as documented and Reports as per HPI Eyes Eyes: Reports system reviewed and no additional complaints, except as documented, Reports as per HPI, Reports eye discharge and Reports irritation ENT Ears, Nose, Mouth, and Throat: Reports system reviewed and no additional complaints, except as documented and Reports as per HPI Cardiovascular Cardiovascular: Reports system reviewed and no additional complaints, except as documented and Rep
[2022-10-02 15:26] VITALS: BP 107/70; PULSE 73; RESP 18; TEMP 37.1; O2SAT 99
== END 2022-10-02 15:28 | disposition home or self-care (01) ==
PROVIDERS: Emergency Provider Nurse Practitioner
DX: H10.33 Unspecified acute conjunctivitis, bilateral (principal)
CPT/HCPCS: 99212; 99214; G0463

== ENCOUNTER 2023-04-21 08:15 | Emergency (ER) | payer BC, SELFPAY ==
[2023-04-21 08:25] VITALS: BP 116/65; PULSE 61; RESP 20; TEMP 36.8; O2SAT 97; BMI 28.3
--- NOTE | 2023-04-21 08:33 | EXP.UTC ---
Discharge Plan Disposition Patient Disposition: Home, Self-Care Condition: Good Prescriptions Prescriptions: New cefdinir 300 mg capsule 300 mg PO BID Qty: 20 0RF No Action atenolol 25 mg tablet 12.5 mg PO DAILY escitalopram oxalate 5 mg tablet 10 mg PO DAILY Patient Comments: TAKE 1 TABLET BY MOUTH ONCE DAILY Referrals Follow up/Referrals: Provider,Referral, [Primary Care Provider] - See instructions Activity Restrictions/Add. Instructions Additional Instructions/Restrictions: *Monitor Temp, Over the counter Motrin or Tylenol as directed/as needed Tylenol every 4 hours and Motrin every 6 hours (as long as your family doctor has told you that you can take it) for fever or pain. and straight to ER if unable to lower temp less than 101.0 after medication given *Warm salt water gargles may help to soothe the throat *Throat Lozenges? *Warm fluids like tea with honey may help to soothe the throat? *Sleep elevated *Humidifier/Vaporizer *Flonase 2 sprays in each nostril daily but be aware that it may take 2-3 days before you notice improvement *Bromfed may cause drowsiness. Know how it effects you (your child) before driving, caring for small child, or sending your child to school. Not other antihistamines/allergy medications while taking bromfed Your throat swab was sent for culture. Those results are typically sent to your primary care. Be sure to follow up in 2-3 days with your family doctor/primary care physician if no improvement so they can review those result and treat if necessary. If you don?t have a primary care doctor, I recommend you get one but in the mean time, you will have to return to a walk in clinic Follow up IMMEDIATELY for new or worsening symptoms or no Noticeable improvement over the next 48-72 hours. 911 for difficulty breathing or swallowing Clinical Impressions Clinical Impression: Pharyngitis Qualifiers: Pharyngitis/tonsillitis etiology: unspecified etiology Qualified Code(s): J02.9 - Acute pharyngitis, unspecified Instructions Patient Instructions: Sore Throat, DI for Ear Pain-Adult Discharge ED Provider: Shalini Pal [facility] General Stated complaint: sore throat,ear pain Mode of Arrival: Ambulatory Source of Information: Patient Limitations: No Limitations Time Seen by Provider: 04/21/23 08:34 Description of Symptoms (Recalled from Triage Doc. by RN): PATIENT C/O SORE THROAT, HEADACHE, AND EAR PAIN X 3-4 DAYS HEENT Symptoms (Recalled from RN notes): Yes Resp Symptoms (Recalled from RN notes): No Skin Symptoms (Recalled from RN notes): No MS Symptoms (Recalled from RN notes): No Functional Status (Recalled from RN notes): WNL History of Present Illness Provider Complaint: Patient states that for the last 3-4 days she has been having pain in her right ear, sore throat and nasal congestion States that today she wasnt feeling any better so she came in to get checked Related Data Home Medications Medication Instructions Recorded Confirmed atenolol 25 mg tablet 12.5 mg PO DAILY Inappropriate 10/02/22 04/21/23 Sinus Tach escitalopram oxalate 5 mg tablet 10 mg PO DAILY Anxiety 10/02/22 04/21/23 Previous Rx's Medication Instructions Recorded cefdinir 300 mg capsule 300 mg PO BID #20 caps 04/21/23 Allergies Allergy/AdvReac Type Severity Reaction Status Date / Time amoxicillin [AMOXICILLIN] Allergy Mild Verified 02/17/22 16:03 erythromycin base Allergy Mild Verified 02/17/22 16:03 [ERYTHROMYCIN BASE] Worker's Comp Is this a Worker's Comp case?: No [facility] Disclaimer: The information contained in this section may have been updated after the patient was seen, as this information can be updated by other users. Medical History (Updated 04/21/23 @ 08:45 by Shalini Pal APRN) Anxiety Depression Social History Smoking Status: N
[2023-04-21 08:45] VITALS: BP 116/65; PULSE 61; RESP 20; TEMP 36.8; O2SAT 97
[2023-04-21 08:46] LABS: UTC Strep Screen (Rapid) Negative (Negative)
== END 2023-04-21 08:48 | disposition home or self-care (01) ==
PROVIDERS: Emergency Provider Nurse Practitioner
DX: J02.9 Acute pharyngitis, unspecified (principal); R51.9 Headache, unspecified; H92.01 Otalgia, right ear; R09.81 Nasal congestion
CPT/HCPCS: 87880; 99212; 99214; G0463

== ENCOUNTER 2023-10-11 19:39 | Emergency (ER) | payer BC, SELFPAY ==
[2023-10-11 19:41] VITALS: BP 126/80; PULSE 100; RESP 20; TEMP 37.4; O2SAT 100; BMI 22.4
--- NOTE | 2023-10-11 20:27 | HMH.EDGENADL ---
Discharge Plan Disposition Patient Disposition: Home, Self-Care Prescriptions Prescriptions: No Action atenolol 25 mg tablet 12.5 mg PO DAILY escitalopram oxalate 5 mg tablet 10 mg PO DAILY Patient Comments: TAKE 1 TABLET BY MOUTH ONCE DAILY cefdinir 300 mg capsule 300 mg PO BID Qty: 20 0RF Referrals Follow up/Referrals: Provider,Referral, [Primary Care Provider] - See instructions Activity Restrictions/Add. Instructions Additional Instructions/Restrictions: Your COVID flu and strep test were all negative your symptoms are consistent with a viral syndrome. Please take Tylenol and ibuprofen as needed at home for any type of pain or bodyaches. You may take [id number] cough medicine as needed. Return with any significant worsening of your symptoms. Clinical Impressions Clinical Impression: Viral syndrome Discharge ED Provider: Nelly Gilbert General Adult HPI General Chief complaint: Upper Respiratory Infection Stated complaint: sore throat,cough Time Seen by Provider: 10/11/23 20:21 Mode of Arrival: Ambulatory Source of Information: Patient Limitations: No Limitations Description of Symptoms (Recalled from ER Triage Doc. by RN): Pt. presents to ED with c/o scratchy throat, cough, shortness of breath. started last night . c/o feeling achy. Did a home Covid test and it was negative. Did not take temp at home. c/o back pain too. History of Present Illness HPI narrative: Patient is a 33-year-old female previously healthy no significant past medical problems presents today with scratchy throat cough low-grade temp. She also has some body aches. Performed a home COVID test which was negative. Has not had any Tylenol or ibuprofen she is been in bed all day. Did have a positive sick contact son recently diagnosed with strep. Related Data Home Medications Medication Instructions Recorded Confirmed atenolol 25 mg tablet 12.5 mg PO DAILY Inappropriate 10/02/22 04/21/23 Sinus Tach escitalopram oxalate 5 mg tablet 10 mg PO DAILY Anxiety 10/02/22 04/21/23 Previous Rx's Medication Instructions Recorded cefdinir 300 mg capsule 300 mg PO BID #20 caps 04/21/23 Allergies Allergy/AdvReac Type Severity Reaction Status Date / Time amoxicillin [AMOXICILLIN] Allergy Mild Verified 02/17/22 16:03 erythromycin base Allergy Mild Verified 02/17/22 16:03 [ERYTHROMYCIN BASE] [facility] Disclaimer: The information contained in this section may have been updated after the patient was seen, as this information can be updated by other users. Medical History (Updated 10/11/23 @ 20:29 by Nelly Gilbert MD) Depression Anxiety Social History Smoking Status: Never smoker alcohol intake: never substance use type: denies use current occupational status: employed Travel in the last 8 weeks: None household members: spouse housing: house current occupation: RN caffeine: Yes ROS Obtained: Yes All systems reviewed & no additional complaints except as documented Physical Exam General General appearance: alert and other (Actively coughing) ENT ENT exam: Present normal exam, normal oropharynx and TM's normal bilaterally Respiratory Respiratory exam: Present normal lung sounds bilaterally and other (Oxygen saturations 100% room air no respiratory distress); Absent respiratory distress Cardiovascular Cardiovascular exam: Present regular rate and normal rhythm Abdominal Exam Abdominal exam: Present soft and distention Neurological Exam Neurological exam: Present alert and oriented X3 Medical Decision Making Braxton Inquiry Pt receiving controlled substance: No Vital Signs: 10/11/23 19:41 Temperature 99.3 F Temperature Source Oral Pulse Rate [Right Radial] 100 H Respiratory Rate 20 Blood Pressure [Right Arm] 126/80 Blood Pressure Mean [Right Arm] 95 Blood Pressure Source [Right Arm] Automatic Cuff Blood Pressure Position [Right Arm] Sitting 02 Sat by Pulse Oximetry 100 Oxygen Delivery Method Room Air Lab Data Lab results reviewed: Yes I reviewed the patient's lab results. Lab Results 10/11/23 20:10: Group A Strep Rapid Negative 10/11/23 20:30: SARS-CoV-2 (PCR) Not detected, Influenza A Untype (PCR) Not detected, Influenza Type B (PCR) Not detected Orders (Tests/Meds): ED MEDICATIONS Discontinued Medications Generic Name Dose Route Start Last Admin Trade Name Freq PRN Reason Stop Dose Admin Acetaminophen 650 mg 10/11/23 20:24 10/11/23 20:31 Acetaminophen 325mg Tab PO 10/11/23 20:25 650 mg ONCE ONE Administration Dexamethasone 10 mg 10/11/23 20:24 10/11/23 20:32 Dexamethasone 4mg Tablet PO 10/11/23 20:25 10 mg ONCE ONE Administration Ibuprofen 600 mg 10/11/23 20:24 10/11/23 20:32 Ibuprofen 600 Mg Tablet PO 10/11/23 20:25 600 mg ONCE ONE Administration ORDERS Category Date Time Status Rapid PCR Covid and Flu A/B Stat Lab 10/11/23 20:30 Completed Rapid Strep Scrn Group A [Strep Scrn Group A (Rapid)] Lab 10/11/23 20:10 Completed Stat Strep Screen Confirmation Stat Micro 10/11/23 20:10 Received Medical Decision Narrative: Well-appearing nontoxic 33-year-old female presenting today with what appears to be a viral syndrome. Strep pharyngitis is possible but less likely given the fact that she has a cough. Will give Tylenol and ibuprofen and dexamethasone to treat her headache and the viral symptoms she is experiencing. Plus minus antibiotics depending on the results from the strep test. COVID and flu are also being tested but she is young healthy without any significant comorbidities and would not be a candidate for antiviral therapy. Supportive care has been discussed. Reassessment 9:33 PM COVID flu strep all negative patient feeling much better with symptomatic medications supportive care and return precautions emphasized she was discharged in a stable condition. Critical Care Critical Care Time Critical Care Time: No
[2023-10-11] MEDS: ACETAMINOPHEN 325MG TAB 650 MG PO (20:31)
[2023-10-11] MEDS: IBUPROFEN 600 MG TABLET PO (20:32)
[2023-10-11] MEDS: DEXAMETHASONE 4MG TABLET 10 MG PO (20:32)
[2023-10-11 20:37] LABS: Coronavirus 19, PCR Not Detected (NotDetected); Influenza A, PCR Not Detected (NotDetected); Influenza B, PCR Not Detected (NotDetected)
[2023-10-11 20:44] LABS: Strep Scrn Group A (Rapid) Negative (Negative)
[2023-10-11 21:37] VITALS: BP 115/68; PULSE 78; RESP 16; TEMP 36.7; O2SAT 98
== END 2023-10-11 21:37 | disposition home or self-care (01) ==
PROVIDERS: Emergency Provider Student in an Organized Health Care Education/Training Program
DX: R05.9 Cough, unspecified (principal); R07.0 Pain in throat; B34.9 Viral infection, unspecified
CPT/HCPCS: 87430; 87636; 99283

== ENCOUNTER 2023-11-24 11:59 | Emergency (ER) | payer BC, SELFPAY ==
[2023-11-24 12:29] VITALS: BP 110/69; PULSE 74; RESP 16; TEMP 36.8; O2SAT 97; BMI 27.1
--- NOTE | 2023-11-24 12:50 | ED_ITS ---
Discharge Plan Disposition Patient Disposition: Home, Self-Care Condition: Good Prescriptions Prescriptions: New methylprednisolone 4 mg Tablets,Dose Pack 4 mg PO DIRECTED 6 Days Qty: 21 0RF Rx Instructions: Take 1 pack as directed for 6 days ketoconazole 2 % cream 1 applic topical BID 28 Days Qty: 30 0RF No Action atenolol 25 mg tablet 12.5 mg PO DAILY Referrals Follow up/Referrals: Alissa Salazar MD [Referring] - See instructions Provider,MD Nany [Primary Care Provider] - See instructions Activity Restrictions/Add. Instructions Additional Instructions/Restrictions: Take the medications as directed. Apply the topical medication to the affected areas as directed. Follow up with your regular doctor. I put in a referral to the cuffing machine operator (Dr. Salazar). Please call her office and get an appointment if this is not resolving. Her office phone number will be on this paperwork. GO TO THE ER FOR ANY WORSENING SYMPTOMS Clinical Impressions Clinical Impression: Seborrheic dermatitis Instructions Patient Instructions: Seborrheic Dermatitis, Ketoconazole Topical, Methylprednisolone Discharge ED Provider: Sherman Zapata [facility] General Stated complaint: Rash on face Mode of Arrival: Ambulatory Source of Information: Patient Limitations: No Limitations Time Seen by Provider: 11/24/23 12:26 Description of Symptoms (Recalled from Triage Doc. by RN): Pt reports rash on her face for approx 1 month. Area on chin, between eyebrows and across R eyelid HEENT Symptoms (Recalled from RN notes): No Resp Symptoms (Recalled from RN notes): No Skin Symptoms (Recalled from RN notes): Yes (rash on face) MS Symptoms (Recalled from RN notes): No Functional Status (Recalled from RN notes): n/a Related Data Home Medications Medication Instructions Recorded Confirmed atenolol 25 mg tablet 12.5 mg PO DAILY Inappropriate 10/02/22 11/24/23 Sinus Tach Previous Rx's Medication Instructions Recorded ketoconazole 2 % topical cream 1 applic topical BID 28 days #30 11/24/23 grams methylprednisolone 4 mg tablets in 4 mg PO DIRECTED 6 days #21 tabs 11/24/23 a dose pack Allergies Allergy/AdvReac Type Severity Reaction Status Date / Time amoxicillin [AMOXICILLIN] Allergy Mild Verified 02/17/22 16:03 erythromycin base Allergy Mild Verified 02/17/22 16:03 [ERYTHROMYCIN BASE] Worker's Comp Is this a Worker's Comp case?: No [facility] Disclaimer: The information contained in this section may have been updated after the patient was seen, as this information can be updated by other users. Medical History (Updated 11/24/23 @ 13:08 by Sherman Zapata APRN) Depression Anxiety Social History Smoking Status: Never smoker alcohol intake: never substance use type: denies use current occupational status: employed Travel in the last 8 weeks: None household members: spouse housing: house current occupation: RN caffeine: Yes ROS Obtained: Yes All systems reviewed & no additional complaints except as documented Constitutional Constitutional: Denies chills and Denies fever(s) Eyes Eyes: Denies eye discharge ENT Ears, Nose, Mouth, and Throat: Denies dizziness, Denies otalgia and Denies sore throat Cardiovascular Cardiovascular: Denies chest pain Respiratory Respiratory: Denies shortness of breath, Denies chest congestion, Denies cough, Denies stridor and Denies wheezing Gastrointestinal Gastrointestingal: Denies nausea or vomiting Musculoskeletal Musculoskeletal: Reports system reviewed and no additional complaints, except as documented and Denies arthralgias Integumentary/Breasts Skin/Breast: Reports as per HPI and Reports rash Neurologic Neurologic: Denies dizziness and Denies paresthesias Allergic/Immunologic Allergic/Immunologic: Denies wheezing Physical Exam General General appearance: alert and in no apparent distress Head Head exam: atraumatic, normocephalic and normal inspection Eye Eye exam: Present normal appearance, PERRL and EOMI ENT ENT exam: Present normal exam, normal oropharynx, mucous membranes moist, TM's normal bilaterally and normal external ear exam Neck Neck exam: Present normal inspection, full ROM and trachea midline; Absent meningismus or lymphadenopathy Chest Chest inspection: Present normal inspection and symmetric chest wall rise; Absent tenderness Respiratory Respiratory exam: Present normal lung sounds bilaterally; Absent respiratory distress Cardiovascular Cardiovascular exam: Present regular rate and normal rhythm; Absent JVD Abdominal Exam Abdominal exam: Present soft and normal bowel sounds; Absent distention, tenderness or guarding Extremities Exam Extremities exam: Present normal inspection, full ROM and normal capillary refill; Absent calf tenderness Back Exam Back exam: Present normal inspection; Absent tenderness Neurological Exam Neurological exam: Present alert and oriented X3 Psychiatric Psychiatric exam: Present normal affect and normal mood Skin Skin exam: Present rash Lymphatic Lymphatic Findings: no adenopathy Medical Decision Making Medical Records Medical records reviewed: No I reviewed the patient's medical records. Braxton Inquiry Pt receiving controlled substance: No Vital Signs: 11/24/23 12:29 Temperature 98.2 F Temperature Source Oral Pulse Rate [Right Radial] 74 Respiratory Rate 16 Blood Pressure [Right Arm] 110/69 Blood Pressure Mean [Right Arm] 82 Blood Pressure Source [Right Arm] Automatic Cuff Blood Pressure Position [Right Arm] Sitting 02 Sat by Pulse Oximetry 97 Oxygen Delivery Method Room Air
[2023-11-24 13:13] VITALS: BP 110/69; PULSE 74; RESP 16; TEMP 36.8; O2SAT 97
== END 2023-11-24 13:14 | disposition home or self-care (01) ==
PROVIDERS: Emergency Provider Nurse Practitioner Family
DX: L21.9 Seborrheic dermatitis, unspecified (principal)
CPT/HCPCS: 99212; 99214; G0463

== ENCOUNTER 2023-12-04 10:33 | Emergency (ER) | payer BC, SELFPAY ==
[2023-12-04 10:40] VITALS: BP 104/79; PULSE 72; RESP 18; TEMP 36.9; O2SAT 98; BMI 26.4
--- NOTE | 2023-12-04 10:55 | ED_ITS ---
Discharge Plan Disposition Patient Disposition: Home, Self-Care Condition: Good Prescriptions Prescriptions: New methylprednisolone [Medrol (Ovidio)] 4 mg tablets,dose pack See Rx Instructions .Route .COMPLEX 6 Days Qty: 21 0RF Rx Instructions: taper pack; No Action atenolol 25 mg tablet 12.5 mg PO DAILY Referrals Follow up/Referrals: Provider,Referral, [Primary Care Provider] - See instructions Activity Restrictions/Add. Instructions Additional Instructions/Restrictions: Use topical cream as prescribed Take oral steriods as prescribed Follow up with Dermatology as scheduled Straight to ER if any life threatening symptoms Clinical Impressions Clinical Impression: Seborrheic dermatitis Instructions Patient Instructions: Seborrheic Dermatitis, Seborrheic Dermatitis (Alternative Therapy) Print Language Print Language: Kenyan Discharge ED Provider: Shalini Pal [facility] [place] HPI General Stated complaint: dermatitis Mode of Arrival: Ambulatory Source of Information: Patient Limitations: No Limitations Time Seen by Provider: 12/04/23 10:55 Description of Symptoms (Recalled from Triage Doc. by RN): PATIENT C/O RED, DRY SKIN TO CHIN AREA AND RIGHT EYELID FOR OVER A MONTH. SHE STATES SHE WAS TREATED 2 WEEKS AGO WITH ORAL STEROIDS AND CREAM. SHE STATES THE STEROID HELPED BUT THE SYMPTOMS RETURNED ONCE THE STEROIDS STOPPED. PATIENT REPORTS HAVING A DERMATOLOGY APPOINTMENT MID-DECEMBER HEENT Symptoms (Recalled from RN notes): No Resp Symptoms (Recalled from RN notes): No Skin Symptoms (Recalled from RN notes): Yes MS Symptoms (Recalled from RN notes): No Functional Status (Recalled from RN notes): WNL History of Present Illness Provider Complaint: Patient states that she has been having issues with dry rash on her face, states that it is no her chin, over her right eyelid and between her eyebrows States that she has an appointment with Dermatology but it is not until Dec 26 States that she was recently on Steriod pack and it helped it to clear up but then it came back so she came in to get it checked Related Data Home Medications ?Medication ?Instructions ?Recorded ?Confirmed atenolol 25 mg tablet 12.5 mg PO DAILY Inappropriate 10/02/22 12/04/23 Sinus Tach Previous Rx's ?Medication ?Instructions ?Recorded methylprednisolone 4 mg tablets in See Rx Instructions .Route 12/04/23 a dose pack (Medrol (Ovidio)) .COMPLEX 6 days #21 tabs Allergies Allergy/AdvReac Type Severity Reaction Status Date / Time amoxicillin [AMOXICILLIN] Allergy Severe Anaphylaxis Verified 12/04/23 10:55 erythromycin base Allergy Severe Anaphylaxis Verified 12/04/23 10:55 [ERYTHROMYCIN BASE] Worker's Comp Is this a Worker's Comp case?: No [facility] Disclaimer: The information contained in this section may have been updated after the patient was seen, as this information can be updated by other users. Medical History (Updated 12/04/23 @ 11:09 by Shalini Pal APRN) Depression Anxiety Social History Smoking Status: Never smoker alcohol intake: never substance use type: denies use current occupational status: employed Travel in the last 8 weeks: None household members: spouse housing: house current occupation: RN caffeine: Yes ROS Obtained: Yes All systems reviewed & no additional complaints except as documented and Yes Systems reviewed as appropriate & no additional complaints except as documented Constitutional Constitutional: Reports system reviewed and no additional complaints, except as documented and Reports as per HPI Eyes Eyes: Reports system reviewed and no additional complaints, except as documented and Reports as per HPI ENT Ears, Nose, Mouth, and Throat: Reports system reviewed and no additional complaints, except as documented and Reports as per HPI Cardiovascular Cardiovascular: Reports system reviewed and no additional complaints, except as documented and Reports as per HPI Respiratory Respiratory: Reports system reviewed and no additional complaints, except as documented and Reports as per HPI Integumentary/Breasts Skin/Breast: Reports system reviewed and no additional complaints, except as documented, Reports as per HPI and Reports other (dry rash on face) Physical Exam General General appearance: alert and in no apparent distress Respiratory Respiratory exam: Present normal lung sounds bilaterally; Absent respiratory distress or wheezes Cardiovascular Cardiovascular exam: Present regular rate, normal rhythm and normal heart sounds Neurological Exam Neurological exam: Present alert, oriented X3 and normal gait Skin Skin exam: Present rash (red dry flaky like rash on chin, between eyebrows and right upper eyelid) Medical Decision Making Braxton Inquiry Pt receiving controlled substance: No Braxton was queried for this patient: No Vital Signs: 12/04/23 10:40 Temperature 98.5 F Temperature Source Oral Pulse Rate [Left Brachial] 72 Respiratory Rate 18 Blood Pressure [Left Arm] 104/79 L Blood Pressure Mean [Left Arm] 87 Blood Pressure Source [Left Arm] Automatic Cuff Blood Pressure Position [Left Arm] Sitting 02 Sat by Pulse Oximetry 98 Oxygen Delivery Method Room Air
[2023-12-04 11:13] VITALS: BP 104/79; PULSE 72; RESP 18; TEMP 36.9; O2SAT 98
== END 2023-12-04 11:17 | disposition home or self-care (01) ==
PROVIDERS: Emergency Provider Nurse Practitioner
DX: L21.9 Seborrheic dermatitis, unspecified (principal)
CPT/HCPCS: 99212; 99214; G0463

== ENCOUNTER 2024-04-18 17:36 | Emergency (ER) | payer BC, SELFPAY ==
[2024-04-18 17:45] VITALS: BP 109/68; PULSE 86; RESP 19; TEMP 37.4; O2SAT 95; BMI 26.8
[2024-04-18 17:54] LABS: UTC Influenza A Antigen Positive (Negative); UTC Influenza B Antigen Negative (Negative); UTC Strep Screen (Rapid) Negative (Negative)
--- NOTE | 2024-04-18 17:58 | EXP.UTC ---
Discharge Plan Disposition Patient Disposition: Home, Self-Care Condition: Good Prescriptions Prescriptions: New oseltamivir [Tamiflu] 75 mg capsule 75 mg PO Q12H 5 Days Qty: 10 0RF guaifenesin 400 mg tablet 400 mg PO Q4H PRN (Reason: cough) Qty: 60 0RF No Action atenolol 25 mg tablet 12.5 mg PO DAILY Referrals Follow up/Referrals: Provider,Referral, MD [Primary Care Provider] - See instructions Activity Restrictions/Add. Instructions Additional Instructions/Restrictions: Take medication as prescribed. Increase fluids and rest. If you become short of air, go to the ER. Clinical Impressions Clinical Impression: Influenza A Stand Alone Forms Stand Alone Forms: Work/School Release Instructions Patient Instructions: DI for Influenza -- Adult Print Language Print Language: Mauritian Discharge ED Provider: Beata Rider [facility] General Stated complaint: ba st ear pain chills diarrhea Mode of Arrival: Ambulatory Source of Information: Patient Limitations: No Limitations Time Seen by Provider: 04/18/24 17:58 Description of Symptoms (Recalled from Triage Doc. by RN): PATIENT C/O BODY ACHES, COUGH, CHILLS, AND SORE THROAT SINCE YESTERDAY HEENT Symptoms (Recalled from RN notes): Yes Resp Symptoms (Recalled from RN notes): Yes Skin Symptoms (Recalled from RN notes): No MS Symptoms (Recalled from RN notes): No Functional Status (Recalled from RN notes): WNL History of Present Illness Provider Complaint: Pt reports that she started with cough and sore throat yesterday and started with chills and body aches today. She states that she has had Tylenol for her symptoms. Related Data Home Medications ?Medication ?Instructions ?Recorded ?Confirmed atenolol 25 mg tablet 12.5 mg PO DAILY Inappropriate 10/02/22 04/18/24 Sinus Tach Previous Rx's ?Medication ?Instructions ?Recorded guaifenesin 400 mg tablet 400 mg PO Q4H PRN cough #60 tabs 04/18/24 oseltamivir 75 mg capsule (Tamiflu) 75 mg PO Q12H 5 days #10 caps 04/18/24 Allergies Allergy/AdvReac Type Severity Reaction Status Date / Time amoxicillin (AMOXICILLIN) Allergy Severe Anaphylaxis Verified 12/04/23 10:55 erythromycin base Allergy Severe Anaphylaxis Verified 12/04/23 10:55 (ERYTHROMYCIN BASE) Worker's Comp Is this a Worker's Comp case?: No [facility] Disclaimer: The information contained in this section may have been updated after the patient was seen, as this information can be updated by other users. Medical History (Updated 04/18/24 @ 18:08 by Beata Rider APRN) Depression Anxiety Social History Smoking Status: Never smoker alcohol intake: never substance use type: denies use current occupational status: employed Travel in the last 8 weeks: None household members: spouse housing: house current occupation: RN caffeine: Yes ROS Obtained: Yes All systems reviewed & no additional complaints except as documented Constitutional Constitutional: Reports system reviewed and no additional complaints, except as documented, Reports body ache, Reports chills, Reports fever(s), Reports headache(s) and Reports malaise Eyes Eyes: Reports system reviewed and no additional complaints, except as documented ENT Ears, Nose, Mouth, and Throat: Reports system reviewed and no additional complaints, except as documented, Reports headache(s), Reports nasal congestion, Reports nasal discharge, Reports odynophagia and Reports sore throat Cardiovascular Cardiovascular: Reports system reviewed and no additional complaints, except as documented Respiratory Respiratory: Reports system reviewed and no additional complaints, except as documented and Reports non-productive cough Gastrointestinal Gastrointestingal: Reports system reviewed and no additional complaints, except as documented and odynophagia Genitourinary Female Genitourinary: Reports system reviewed and no additional complaints, except as documented Musculoskeletal Musculoskeletal: Reports system reviewed and no additional complaints, except as documented Integumentary/Breasts Skin/Breast: Reports system reviewed and no additional complaints, except as documented Neurologic Neurologic: Reports system reviewed and no additional complaints, except as documented and Reports headache(s) Endocrine Endocrine: Reports system reviewed and no additional complaints, except as documented Hematologic/Lymphatic Henatologic/Lymphatic: Reports system reviewed and no additional complaints, except as documented Allergic/Immunologic Allergic/Immunologic: Reports system reviewed and no additional complaints, except as documented Physical Exam General General appearance: alert Comment: ill appearing Head Head exam: atraumatic and normocephalic Eye Eye exam: Present normal appearance Expanded ENT Exam External ear exam: Present normal external inspection Nasal speculum exam: Bilateral: other (clear drainage) Mouth exam: Present normal external inspection Teeth exam: Present normal inspection Throat exam: Present normal inspection Comment: post nasal drainage Neck Neck exam: Present normal inspection; Absent lymphadenopathy Chest Chest inspection: Present normal inspection and symmetric chest wall rise Respiratory Respiratory exam: Present normal lung sounds bilaterally Cardiovascular Cardiovascular exam: Present regular rate and normal rhythm Abdominal Exam Abdominal exam: Present soft Extremities Exam Extremities exam: Present normal inspection Back Exam Back exam: Present normal inspection Neurological Exam Neurological exam: Present alert and oriented X3 Psychiatric Psychiatric exam: Present normal affect and normal mood Skin Skin exam: Present warm, dry and intact Lymphatic Lymphatic Findings: no adenopathy Medical Decision Making Medical Records Screening: Per USPSTF and CDC recommendations, given the prevalence of disease in our region, it is our hospital?s policy to screen for HIV and viral Hepatitis for all patients aged 18 and over and those with ongoing risk factors. Braxton Inquiry Pt receiving controlled substance: No Braxton was queried for this patient: No Vital Signs: 04/18/24 17:45 Temperature 99.3 F Temperature Source Oral Pulse Rate [Left Brachial] 86 Respiratory Rate 19 Blood Pressure [Left Arm] 109/68 L Blood Pressure Mean [Left Arm] 81 Blood Pressure Source [Left Arm] Automatic Cuff Blood Pressure Position [Left Arm] Sitting 02 Sat by Pulse Oximetry 95 Oxygen Delivery Method Room Air Lab Data Lab results reviewed: Yes I reviewed the patient's lab results. Lab Results 04/18/24 17:43: Influenza Type A Ag Positive A, Influenza Type B Ag Negative, Strep Scn Rapid Clinic Negative Orders (Tests/Meds): ORDERS Category Date Time Status Strep Screen Confirmation Stat Micro 04/18/24 17:43 Received
[2024-04-18 18:01] VITALS: BP 109/68; PULSE 86; RESP 19; TEMP 37.4; O2SAT 95
== END 2024-04-18 18:10 | disposition home or self-care (01) ==
PROVIDERS: Emergency Provider Nurse Practitioner Family
DX: J10.1 Influenza due to other identified influenza virus with other respiratory manifestations (principal); R50.9 Fever, unspecified; H92.03 Otalgia, bilateral; R19.7 Diarrhea, unspecified; R05.9 Cough, unspecified; M79.10 Myalgia, unspecified site
CPT/HCPCS: 87804; 87880; 99212; G0381

== ENCOUNTER 2024-07-07 05:46 | Emergency (ER) | payer BC, SELFPAY ==
[2024-07-07 05:47] VITALS: BP 121/83; PULSE 67; RESP 14; TEMP 36.6; O2SAT 98; BMI 27.4
[2024-07-07 05:53] VITALS: BP 121/83; PULSE 83; O2SAT 98
--- NOTE | 2024-07-07 05:55 | HMH.EDGENADL ---
Discharge Plan Disposition Patient Disposition: Home, Self-Care Condition: Good Prescriptions Prescriptions: New sulfamethoxazole-trimethoprim 800-160 mg tablet 1 tab PO BID 5 Days Qty: 10 0RF phenazopyridine 99.5 mg tablet 99.5 mg PO Q8H Qty: 6 0RF No Action atenolol 25 mg tablet 12.5 mg PO DAILY oseltamivir [Tamiflu] 75 mg capsule 75 mg PO Q12H 5 Days Qty: 10 0RF guaifenesin 400 mg tablet 400 mg PO Q4H PRN (Reason: cough) Qty: 60 0RF Referrals Follow up/Referrals: Provider,Referral, [Primary Care Provider] - See instructions Activity Restrictions/Add. Instructions Additional Instructions/Restrictions: You were evaluated in the ER and are appropriate for discharge at this time. Take the prescribed antibiotics as directed, do not skip doses, do not stop taking them early. Take the prescribed Azo if needed for urinary discomfort. This will turn your urine bright orange. Drink plenty of fluids to maintain good hydration. Make an appointment with your primary care doctor for reevaluation in 2 to 3 days. Return to the ER with new, worsening, or otherwise concerning symptoms. Clinical Impressions Clinical Impression: UTI (urinary tract infection) Print Language Print Language: Moldovan Discharge ED Provider: Mansoor Marshall General Adult HPI General Chief complaint: Back Pain/Injury Stated complaint: bladder spasms, frequent urination Time Seen by Provider: 07/07/24 05:49 History of Present Illness HPI narrative: 34-year-old female with a history of inappropriate sinus tachycardia on atenolol daily presents to the ER with complaints of dysuria, urinary urgency, frequency. She believes she has a urinary tract infection. Patient symptoms started approximately 24 hours ago. She does report she is sexually active and does not have regular periods secondary to having an IUD. She denies abdominal pain, nausea, vomiting, diarrhea, she denies any current back pain. She denies fevers, chills, chest pain, difficulty breathing, she states she has no other associated symptoms. Related Data Home Medications ?Medication ?Instructions ?Recorded ?Confirmed atenolol 25 mg tablet 12.5 mg PO DAILY Inappropriate 10/02/22 04/18/24 Sinus Tach Previous Rx's ?Medication ?Instructions ?Recorded guaifenesin 400 mg tablet 400 mg PO Q4H PRN cough #60 tabs 04/18/24 oseltamivir 75 mg capsule (Tamiflu) 75 mg PO Q12H 5 days #10 caps 04/18/24 phenazopyridine 99.5 mg tablet 99.5 mg PO Q8H 6 doses #6 tabs 07/07/24 sulfamethoxazole 800 1 tab PO BID 5 days #10 tabs 07/07/24 mg-trimethoprim 160 mg tablet Allergies Allergy/AdvReac Type Severity Reaction Status Date / Time amoxicillin (AMOXICILLIN) Allergy Severe Anaphylaxis Verified 12/04/23 10:55 erythromycin base Allergy Severe Anaphylaxis Verified 12/04/23 10:55 (ERYTHROMYCIN BASE) [facility] Disclaimer: The information contained in this section may have been updated after the patient was seen, as this information can be updated by other users. Medical History (Updated 07/07/24 @ 06:38 by Mansoor Marshall MD) Depression Anxiety Social History Smoking Status: Never smoker alcohol intake: never substance use type: denies use current occupational status: employed Travel in the last 8 weeks: None household members: spouse housing: house current occupation: RN caffeine: Yes Have you lived/traveled outside [place] in past 30 days?: No Contact w/someone who lives/traveled outside US past 30 days?: No Exposure to someone with infectious disease in past 14 days?: No Do you have a fever (greater than 100.4 F or 38 C)?: No Have you tested positive for COVID-19: No Exposed to someone with COVID-19 in past 14 days?: No Do you have a sore throat?: No Do you have a cough?: No Do you have any weakness?: No Do you have any diarrhea?: No Are you experiencing any unusual bleeding?: No Do you have any muscle aches/pain?: No Do you have any abdominal pain?: No Are you experiencing loss of taste or smell?: No Other Medical History Have you received the Flu Vaccine for this season: Yes Have you received the Pneumonia Vaccine: No ROS Obtained: Yes Systems reviewed as appropriate & no additional complaints except as documented per HPI Physical Exam General General appearance: alert and in no apparent distress Head Head exam: atraumatic and normocephalic Eye Eye exam: Present PERRL and EOMI ENT ENT exam: Present mucous membranes moist Neck Neck exam: Present normal inspection and full ROM Chest Chest inspection: Present symmetric chest wall rise Respiratory Respiratory exam: Absent respiratory distress or stridor Cardiovascular Cardiovascular exam: Present regular rate and normal rhythm Abdominal Exam Abdominal exam: Present soft; Absent distention or tenderness Extremities Exam Extremities exam: Present full ROM; Absent edema Back Exam Back exam: Absent CVA tenderness (R) or CVA tenderness (L) Neurological Exam Neurological exam: Present alert, oriented X3 and normal gait; Absent motor sensory deficit Psychiatric Psychiatric exam: Present normal affect and normal mood Skin Skin exam: Present warm and dry Medical Decision Making Medical Records Medical records reviewed: Yes I reviewed the patient's medical records. Screening: Per USPSTF and CDC recommendations, given the prevalence of disease in our region, it is our hospital?s policy to screen for HIV and viral Hepatitis for all patients aged 18 and over and those with ongoing risk factors. MR Comment: Patient was seen in April 2024 in [facility] and diagnosed with influenza and prescribed Tamiflu and guaifenesin. Braxton Inquiry Pt receiving controlled substance: No Vital Signs: 07/07/24 05:47 07/07/24 05:53 07/07/24 06:00 Temperature 97.9 F Temperature Source Oral Pulse Rate 83 69 Pulse Rate [Radial] 67 Respiratory Rate 14 Blood Pressure 121/83 105/73 L Blood Pressure [Right Arm] 121/83 Blood Pressure Mean [Right Arm] 95 Blood Pressure Position [Right Arm] Sitting 02 Sat by Pulse Oximetry 98 98 98 Oxygen Delivery Method Room Air Room Air Room Air Lab Data Lab Results 07/07/24 05:50: Urine Color Yellow, Urine Appearance Cloudy, Urine pH 6.0, Ur Specific [place] >= 1.030, Urine Protein 2+ A, Urine Glucose (UA) Negative, Urine Ketones Negative, Urine Blood 3+ A, Urine Nitrate Negative, Urine Bilirubin Negative, Urine Urobilinogen 0.2, Ur Leukocyte Esterase 1+ A, Urine RBC 20-50, Urine WBC 10-20, Ur Squamous Epith Cells 10-20, Urine Bacteria Trace, Urine HCG, Qual Negative Orders (Tests/Meds): ED MEDICATIONS Discontinued Medications Generic Name Dose Route Start Last Admin Trade Name Freq PRN Reason Stop Dose Admin Trimethoprim/Sulfamethoxazole 1 each 07/07/24 06:36 Sulfa/Trimethoprim 1 Tablet PO 07/07/24 06:37 ONCE ONE ORDERS Category Date Time Status Urinalysis and Microscopic Stat Lab 07/07/24 05:50 Completed Urine , HCG Qual. Stat Lab 07/07/24 05:50 Completed Urine Culture Stat Micro 07/07/24 05:50 Received Medical Decision Narrative: In summary, this 34-year-old female with history of inappropriate sinus tachycardia which appears to be at goal therapy presents to the emergency department today with dysuria, urgency, frequency. On initial evaluation patient is hemodynamically stable, afebrile, exam is overall benign with no abdominal tenderness or CVA tenderness. Differential diagnosis includes but is not limited to urinary tract infection, also considered , hematuria, considered STI since patient is sexually active. I considered pyelonephritis but patient has no CVA tenderness, fever, or abdominal pain. Based on these concerns, I ordered urine studies. Labs were reviewed by me, test is negative, UA is contaminated with squamous cells but is positive for blood and leukocytes, given patient's symptoms, will treat for urinary tract infection. Culture pending. Patient was treated with Bactrim given her reported anaphylaxis to amoxicillin. I prescribed Bactrim for outpatient management as well as phenazopyridine for symptomatic management. Patient was given instructions on symptomatic monitoring and management, medication use, follow up instructions, and return precautions for the emergency department. Patient indicated understanding and was discharged in stable condition. Critical Care Critical Care Time Critical Care Time: No
[2024-07-07 05:59] LABS: Microscopic, Urine URINE MICROSCOPIC (MICROSCOPIC)
[2024-07-07 06:00] VITALS: BP 105/73; PULSE 69; O2SAT 98
[2024-07-07 06:02] LABS: Appearance,Urine CLOUDY (Clear); Blood, Urine 3+ (Negative); Color,Urine YELLOW (Yellow); Glucose,Urine (UA) Negative (Negative); Ketones,Urine Negative (Negative); Leukocyte Esterase,Urine 1+ (Negative); Nitrate,Urine Negative (Negative); Protein,Urine 2+ (Negative); Specific Gravity, Urine >= 1.030 (1.005-1.030); Urine Pregnancy, HCG Qual. Negative (Negative); Urobilinogen,Urine 0.2 EU/dl (0.2)
[2024-07-07 06:03] LABS: Bilirubin,Urine Negative (Negative)
[2024-07-07 06:33] LABS: Bacteria,Urine Trace /lpf; RBC,Urine 20-50 #/hpf (0-3)
[2024-07-07] MEDS: SULFA/TRIMETHOPRIM 1 TABLET 1 EACH PO (06:41)
[2024-07-07 06:48] VITALS: BP 124/62; PULSE 64; RESP 14; TEMP 36.7; O2SAT 100
[2024-07-09 03:36] LABS: Neisseria gonorrhoeae, NAA Negative (Negative)
--- NOTE | 2024-07-09 12:22 | PC.NURSE ---
URINE CULTURE DISCUSSED WITH DR CERVANTES, NO NEW ORDERS
== END 2024-07-07 06:48 | disposition home or self-care (01) ==
PROVIDERS: Emergency Provider Emergency Medicine
DX: N39.0 Urinary tract infection, site not specified (principal); N32.89 Other specified disorders of bladder; R30.0 Dysuria; R39.15 Urgency of urination; R35.0 Frequency of micturition
CPT/HCPCS: 81001; 81025; 87086; 87088; 87186; 87491; 87591; 99283

== ENCOUNTER 2024-08-23 16:00 | Outpatient (CLI) | payer BC, SELFPAY ==
--- OUTSIDE RECORDS SUMMARY | 2024-09-01 09:39 | XMS_ITS | Data Portability ---
Author Organization MICHELLE - [place] ABDULLAHI Shepherd [place] CLOSED Address [address] [place] [address] Assessment Encounter Date Assessment Date Assessment LastModified by Organization Details LastModified Time 06/05/2024 06/05/2024 Urine sent for resolve MDX PCR culture given dysuria/urethr itis symptom profile. We discussed prevention measures for UTI including but not limited to adequate hydration, complete emptying of the bladder, avoidance of high risk sexual behaviors, proper vulvar hygiene, etc. She is emptying well. Should recurrent UTIs become a problem for her, we will investigate further. I will follow the results of her culture and prescribe antibiotics if clinically appropriate. I recommend [id number] er Pyridium for symptom management and that she increase her fluid intake dramatically. She is to follow-up with us on an as-needed basis. [email or web address] Not available 06/05/2024 13:40:53 Plan of Treatment Reminders Order Date Submit Date Provider Last Modified By Organization Details Last Modified Time Details Appointments None recorded. Lab urinalysis panel, auto 2024 025 [email or web address] 24 [facility], [address], [place], [address], 13:40:55 Referral None recorded. Procedures None recorded. Surgeries None recorded. Imaging None recorded. Medication Orders None recorded. Patient TargetsNo targets recorded. Patient InstructionsNo instructions recorded. Reason for Referral None Reported. Results Created Date Observation Date Name Description Value Unit Range Abnormal Flag Note LastModifiedBy Organization Detail LastModifiedTime 06/05/19 25 06/05/2024 urina lysis panel , auto Unknown Analyte Clean Catch Not Available [facility] [address], [place], [address], 06/05/2024 11:25:27 06/05/19 25 06/05/2024 urina lysis panel , auto Unknown Analyte Yellow Not Available [facility] [address], [place], [address], 06/05/2024 11:25:27 06/05/19 25 06/05/2024 urina lysis panel , auto Unknown Analyte Clear Not Available [facility] [address], [place], [address], 06/05/2024 11:25:27 06/05/19 25 06/05/2024 urina lysis panel , auto Unknown Analyte 1.010 Not Available [facility] [address], [place], [address], 06/05/2024 11:25:27 06/05/19 25 06/05/2024 urina lysis panel , auto Unknown Analyte 1.003- 1.035 Not Available [facility] [address], [place], [address], 06/05/2024 11:25:27 06/05/19 25 06/05/2024 urina lysis panel , auto Unknown Analyte 5.0 Not Available [facility] [address], [place], [address], 06/05/2024 11:25:27 06/05/19 25 06/05/2024 urina lysis panel , auto Unknown Analyte 5.0-8. 0 Not Available [facility] [address], [place], [address], 06/05/2024 11:25:27 06/05/19 25 06/05/2024 urina lysis panel , auto Unknown Analyte Negati ve Not Available [facility] [address], [place], [address], 06/05/2024 11:25:27 06/05/19 25 06/05/2024 urina lysis panel , auto Unknown Analyte Negati ve Not Available [facility] [address], [place], [address], 06/05/2024 11:25:27 06/05/19 25 06/05/2024 urina lysis panel , auto Unknown Analyte Negati ve Not Available [facility] [address], [place], [address], 06/05/2024 11:25:27 06/05/19 25 06/05/2024 urina lysis panel , auto Unknown Analyte Negati ve Not Available [facility] [address], [place], [address], 06/05/2024 11:25:27 06/05/19 25 06/05/2024 urina lysis panel , auto Unknown Analyte Negati ve Not Available [facility] [address], [place], [address], 06/05/2024 11:25:27 06/05/19 25 06/05/2024 urina lysis panel , auto Unknown Analyte Negati ve Not Available [facility] [address], [place], [address], 06/05/2024 11:25:27 06/05/19 25 06/05/2024 urina lysis panel , auto Unknown Analyte Normal Not Available [facility] [address], [place], [address], 06/05/2024 11:25:27 06/05/19 25 06/05/2024 urina lysis panel , auto Unknown Analyte Normal Not Available [facility] [address], [place], [address], 06/05/2024 11:25:27 06/05/19 25 06/05/2024 urina lysis panel , auto Unknown Analyte Negati ve Not Available [facility] [address], [place], [address], 06/05/2024 11:25:27 06/05/19 25 06/05/2024 urina lysis panel , auto Unknown Analyte Negati ve Not Available [facility] [address], [place], [address], 06/05/2024 11:25:27 06/05/19 25 06/05/2024 urina lysis panel , auto Unknown Analyte Normal Not Available [facility] [address], [place], [address], 06/05/2024 11:25:27 06/05/19 25 06/05/2024 urina lysis panel , auto Unknown Analyte Normal 1 mg/dl Not Available [facility] [address], [place], [address], 06/05/2024 11:25:27 06/05/19 25 06/05/2024 urina lysis panel , auto Unknown Analyte Negati ve Not Available [facility] [address], [place], [address], 06/05/2024 11:25:27 06/05/19 25 06/05/2024 urina lysis panel , auto Unknown Analyte Negati ve Not Available [facility] [address], [place], [address], 06/05/2024 11:25:27 06/05/19 25 06/05/2024 urina lysis panel , auto Unknown Analyte Trace Not Available [facility] [address], [place], [address], 06/05/2024 11:25:27 06/05/19 25 06/05/2024 urina lysis panel , auto Unknown Analyte Negati ve Not Available [facility] [address], [place], [address], 06/05/2024 11:25:27 Result Notes None recorded. Procedures Surgical History Date Name Laterality Status Provider Name and Address Organization Details Recorded Time Post Void Residual; Ultrasound completed Jessica Stone [facility] 06/05/2024 11:25:12 Imaging Results None recorded. Procedure Notes None recorded. Medical Equipment None Reported. Allergies Allergen ID Allergen Name Allergen Category Reaction Reaction Severity Criticality Documentation Date Start Date Code Code System Note Provider Name and Address Organization Details Recorded Time 336969 amoxicill in medicatio n Not available Not available Not available 06/05/2024 723 RxNorm Jessica Stone null, [place] [facility] [place] [facility] 11:24:12 126984 erythromy vitaliy medicatio n Not available Not available Not available 06/05/2024 4053 RxNorm Jessica Vaca [facility] 11:24:21 Medications Name Sig Start Date Stop Date Status Note LastModified by Organization Details LastModified Time fluconazole 100 mg tablet Take 1 tablet for prevention of yeast infection 2024 active Not Available Not Available Not Avai lable doxycycline hyclate 100 mg capsule Take 1 capsule twice daily for 7 days. Take with food (do not take with dairy products). 2024 active Not Available Not Available Not Avai lable Vitals Date Recorded Body height Body mass index (BMI) Body weight Provider Name and Address Organization Details Last Updated DateTime 06/05/2024 160.02 cm 26.6 kg/m2 94907.86 g Jessica Vaca [facility] 06/05/2024 11:23:41 Social History Question Answer Notes LastModified by Organizat ion Details LastModified Time What Was The Date Of Your Most Recent Tobacco Screening? 06/05/2024 Information not available 06/05/2024 Sex: Unknown Functional Status None recorded. Mental Status None recorded. Family History Nothing Reported. Medical History No medical history recorded. Gynecological HistoryNo gynecological history recorded. Obstetrics History GPAL:G 0 P 0 0 0 0 Past Encounters Encounter ID Performer Location Encounter Start Date Encounter Closed Date Diagnosis/Indication Diagnosis SNOMED-CT Code Diagnosis ICD10 Code Diagnosis Note [id number] ASCENC[facility] PANTOJA PA-C [facility] [address] [place] [address] 06/05/2024 10:43:49 06/05/2024 11:29:03 Acute urinary tract infection 183208192 N39.0 Health Concerns Section Related Observation LastModified by Organization Detai ls LastModified Time None Recorded Concern Status LastModified by Organization Details LastModified Time None Recorded Advance Directives Directive None Recorded Payers Encounter Date Sequence Insurance Name Policy Number Policy Buckley Covered Member ID Buclkey Member ID Guarantor Name 06/05/2024 1 [place] [id number] Norma Calvin [id number] Norma Calvin Notes Date Note Type Note Provider Name and Address Organization Details Recorded Time 06/05/2024 text/html The patient is a {{ 34#}}-year-old {{male female*}} here for my initial evaluation of urethral discomfort and terminal dysuria. The patient has history of recurrent vulvovaginal candidal infections but denies vaginal discharge or vulvar itching today.She {{report deny denie s#}} associated symptoms of urinary incontinence, increased frequency/urgency of urination, hematuria, fever, chills, flank pain, nausea, or vomiting. Symptoms often reportedly improve with antibiotic treatment. She drinks approximately 40 ounces of water per day, other drinks include caffeinated juice drinks and Mountain Dew. She is regularly sexually active. She denies constipation. No history of urological surgery. We discussed the patient's risk factors, of which includes{{regular sexual activity inadequate personal hygiene habits chronic constipation cathet erization recent urologic surgery regular sexual activity with high risk behaviors and poor hydration.#}}Patien t denies personal and familial history of urothelial cancer and stones. ASCENCION PANTOJA PA-C [address] [place], [address], [facility] 06/05/2024 13:40:57 OBGyn Episode No OBEpisode recorded.
== END 2024-08-23 23:59 | disposition home or self-care (01) ==
LOC: LAB.DROPOF 09-01 09:37
PROVIDERS: PCP Nurse Practitioner; Visit Provider Nurse Practitioner
DX: N39.0 Urinary tract infection, site not specified (principal); B96.20 Unspecified Escherichia coli [E. coli] as the cause of diseases classified elsewhere
CPT/HCPCS: 87086; 87088; 87186

== ENCOUNTER 2024-10-08 19:15 | Outpatient (CLI) | payer BC, SELFPAY | END 2024-10-08 23:59 | disposition home or self-care (01) | LOC: LAB.DROPOF 10-09 13:32 | PROVIDERS: PCP Nurse Practitioner; Visit Provider Nurse Practitioner | DX: M54.50 Low back pain, unspecified (principal) | CPT/HCPCS: 87086 ==

== ENCOUNTER 2024-12-03 11:56 | Outpatient (CLI) | payer BC, SELFPAY ==
--- OUTSIDE RECORDS SUMMARY | 2024-11-04 10:30 | XMS_ITS | Encounter Summary ---
Author Organization [employer] ([place], [place], [place], [place]) Address [address] [place] [address] Care Team Providers Care Child Nutrition Assistant Name Role Phone Unavailable Primary Care Provider Unavailabl e Encounter Details Date Type Department Care Team (Latest Contact Info) Description 11/04/2024 10:30 AM EDT Clinical Support [address] [address] Carmen Luo MA Palpitations (Primary Dx) Social History Tobacco Use Types Packs/Day Years Used Date Smoking Tobacco: Never Smokeless Tobacco: Never Alcohol Use Standard Drinks/Week Comments Not Currently 0 (1 standard drink = 0.6 oz pur e alcohol) Employment Answer Date Recorded Help finding and keeping a job Not on file 0 05/31/2023 Family and Community Support Answer Enrique e Recorded Help with Day to Day Activities Not on file 05/31/2023 Feeling Lonely or Isolated Not on file 05/31 Educational Attainment Answer Date Cheng rded Speak language other than German at home Not on file 05/31/2023 Want help with school or training Not on file 05/31/2023 Substance Use Answer Date Recorded Used prescription meds for non-medical reasons N ot on file 05/31/2023 Used illegal drugs past 12 months Not on file 05/31/2023 Comments Unknown Sex and Gender Information Value Date Recorded Sex Assigned at Not on file Legal Sex Female 6:06 PM CDT Gender Identity Not on file Sexual Orientation Not on file documented as of this encounter Miscellaneous Notes * Result Encounter Note - Octavio Alexis APRN - 11/04/2024 10:30 AM EDT Can you please call the patient. Let her know that her event recorder was completely normal. documented in this encounter Plan of Treatment Not on file documented as of this encounter Procedures Procedure Name Priority Date/Time Associated Diagnosis Comments HOLTER MONITOR HOOKUP Routine 11/24/2024 3:34 PM EDT Palpitations documented in this encounter Results * HOLTER MONITOR HOOKUP (11/24/2024 3:34 PM EDT) Anatomical Region Laterality Modality Other Addenda Addendum by Lucila Brown MD on 11/24/2024 4:34 PM EDT - Monitor time is 7 days and 1 hour (11/04/2024 to 11/10/2024) -Predominant rhythm is normal sinus rhythm, average heart rate 72 bpm, minimum 39 bpm, maximum 159 bpm -PACs and PVCs burden less than 1% -There were 0 patient triggers -No sustained mukul or tachyarrhythmias were noted during the observed time. us Octavio Alexis APRN [facility] BLES Edited Result - Final documented in this encounter Visit Diagnoses Diagnosis Palpitations- Primary documented in this encounter
--- OUTSIDE RECORDS SUMMARY | 2024-12-07 11:59 | XMS_ITS | Encounter Summary ---
Author Organization [employer] ([place], [place], [place], [place]) Address [address] [place] [address] Care Team Providers Care Medical Review Coordinator Name Role Phone Unavailable Primary Care Provider Unavailabl e Reason for Visit * Reason Comments Medication Refill Encounter Details Date Type Department Care Team (Late st Contact Info) Description 04/05/2023 Refill [facility] Cardiology [address] [place] [address] Radha Crockett, DIE DRAWING CHECKER [address] [facility] [address] [place] [address] Social History Tobacco Use Types Packs/Day Years Used Date Smoking Tobacco: Never Smokeless Tobacco: Never Comments Unknown Sex and Gender Information Value Date Recorded Sex Assigned at Not on file Legal Sex Female 6:06 PM CDT Gender Identity Not on file Sexual Orientation Not on file documented as of this encounter Plan of Treatment Not on file documented as of this encounter Visit Diagnoses Not on filedocumented in this encounter
--- OUTSIDE RECORDS SUMMARY | 2024-12-07 11:59 | XMS_ITS | Referral Summary ---
Author Organization [employer] ([place], [place], [place], [place]) Address [address] [place] [address] Care Team Providers Care Landscape Crew Leader Name Role Phone Unavailable Primary Care Provider Unavailabl e Encounters Date Type Department Care Team Description 11/04/2024 Travel 11/04/2024 10:30 AM EDT Clinical Support [facility] Electrophysiology [address] [place] [address] Carmen Luo MA Palpitations (Primary Dx) 11/04/2024 Orders Only [facility] Cardiology [address] [place] [address] Octavio Alexis APRN Palpitations (Primary Dx) from Last 3 Months Allergies Active Allergy Reactions Criticality Noted Date Comments Amoxicillin Anaphylaxis High 08/27/2019 Erythromycin Anaphylaxis High 08/27/2019 Medications atenoloL (TENORMIN) 25 MG tablet Take 0.5 tablets (12.5 mg total) by mouth daily. 45 tablet 3 03/04/2024 Active Social History Tobacco Use Types Packs/Day Years Used Date Smoking Tobacco: Never Smokeless Tobacco: Never Tobacco Cessation:Counseling Given: Not Answered Alcohol Use Standard Drinks/Week Comments Not Currently [...] Date Cheng rded Speak language other than Azeri at home Not on file 05/31/2023 Want [...] on file Sexual Orientation Not on file Last Filed Vital Signs Vital Sign Reading Time Taken Comments Blood Pressure 124/70 03/04/2024 1:49 PM EDT Pulse 65 03/04/2024 1:49 PM EDT Temperature - - Respiratory Rate - - Oxygen Saturation - - Inhaled Oxygen Concentration - - Weight 68.2 kg (150 lb 6.4 oz) 03/04/2024 1:49 P M EDT Height 160 cm (5' 3 ) 03/04/2024 1:49 PM EDT Body Mass Index 26.64 03/04/2024 1:49 PM EDT Plan of Treatment Not on file Procedures Procedure Name Priority Date/Time Associated Diagnosis Comments HOLTER MONITOR HOOKUP Routine 11/24/2024 3:34 PM EDT Palpitations from Last 3 Months Results * HOLTER MONITOR HOOKUP (11/24/2024 3:34 [...] tachyarrhythmias were noted during the observed time. Octavio Alexis APRN [facility] BL[facility] Edited Result - Final from Last 3 Months Insurance BLUE CROSS/BLUE SHIELD
--- OUTSIDE RECORDS SUMMARY | 2024-12-07 11:59 | XMS_ITS | Encounter Summary ---
Author Organization [employer] ([place], [place], [place], [place]) Address [address] [place] [address] Care Team Providers Care Power Regulator Name Role Phone Unavailable Primary Care Provider Unavailabl e Reason for Visit * Reason Comments Medication Refill Encounter Details Date Type Department Care Team (Late st Contact Info) Description 09/01/[address] [facility] Cardiology [address] [place], [place] [address] [place] [address] [place] [address] [address] [place] [address] Social History Tobacco Use Types Packs/Day Years Used Date Smoking Tobacco: Never Assessed Comments Unknown Sex and Gender Information Value Date Recorded Sex Assigned at Not on file Legal Sex Female 6:06 PM CDT Gender Identity Not on file Sexual Orientation Not on file documented as of this encounter Plan of Treatment Not on file documented as of this encounter Visit Diagnoses Not on filedocumented in this encounter
--- OUTSIDE RECORDS SUMMARY | 2024-12-07 11:59 | XMS_ITS | Encounter Summary ---
Author Organization [employer] ([place], [place], [place], [place]) Address [address] [place] [address] Care Team Providers Care Head Filter Tank Tender Helper Name Role Phone Unavailable Primary Care Provider Unavailabl e Encounter Details Date Type Department Care Team (Late st Contact Info) Description 11/04/2024 Orders Only [facility] Cardiology [address] [place] [address] Octavio Alexis, RAW FINISH MILL OPERATOR [address] [place] [address] [address] [place] [address] Palpitations (Primary Dx) Social History Tobacco Use [...] Date Cheng rded Speak language other than Mohawk at home Not on file 05/31/2023 Want [...] documented as of this encounter Visit Diagnoses Diagnosis Palpitations- Primary documented in this encounter
--- OUTSIDE RECORDS SUMMARY | 2024-12-07 11:59 | XMS_ITS | Data Portability ---
Author Organization [facility] ABDULLAHI Shepherd ODEBOLT CLOSED Address [address] [place] [address] Assessment Encounter Date Assessment Date Assessment LastModified [...] prescribe antibiotics if clinically appropriate. I recommend [id number] er Pyridium for symptom management and that she increase her fluid intake dramatically. She is to follow-up with us on an as-needed basis. Not available 06/05/2024 13:40:53 Plan of Treatment Reminders Order Date Submit Date Provider Last Modified By Organization Details Last Modified Time Details Appointments None recorded. Lab urinalysis panel, auto 2024 025 [email or web address] [id number] [facility], [address], [place], [address], 13:40:55 Referral None recorded. Procedures None recorded. Surgeries None recorded. Imaging None recorded. Medication Orders None recorded. Patient TargetsNo targets recorded. Patient InstructionsNo instructions recorded. Reason for Referral None Reported. Results Created Date Observation Date Name Description Value Unit Range Abnormal Flag Note LastModifiedBy Organization Detail LastModifiedTime 06/05/19 25 06/05/2024 urina lysis panel , auto Unknown Analyte Clean Catch Not Available [facility] [address], [place], [address], 06/05/2024 11:25:27 06/05/19 25 06/05/2024 urina lysis panel , auto Unknown Analyte Yellow Not Available [facility] [address], [place], [address], 06/05/2024 11:25:27 06/05/19 25 06/05/2024 urina lysis panel , auto Unknown Analyte Clear Not Available [facility] [address], [place], [address], 06/05/2024 11:25:27 06/05/19 25 06/05/2024 urina lysis panel , auto Unknown Analyte 1.010 Not Available [facility] [address], [place], [address], 06/05/2024 11:25:27 06/05/19 25 06/05/2024 urina lysis panel , auto Unknown Analyte 1.003- 1.035 Not Available [facility] [address], [place], [address], 06/05/2024 11:25:27 06/05/19 25 06/05/2024 urina lysis panel , auto Unknown Analyte 5.0 Not Available [facility] [address], [place], [address], 06/05/2024 11:25:27 06/05/19 25 06/05/2024 urina lysis panel , auto Unknown Analyte 5.0-8. 0 Not Available [facility] [address], [place], [address], 06/05/2024 11:25:27 06/05/19 25 06/05/2024 urina lysis panel , auto Unknown Analyte Negati ve Not Available [facility] [address], [place], [address], 06/05/2024 11:25:27 06/05/19 25 06/05/2024 urina lysis panel , auto Unknown Analyte Negati ve Not Available [facility] [address], [place], [address], 06/05/2024 11:25:27 06/05/19 25 06/05/2024 urina lysis panel , auto Unknown Analyte Negati ve Not Available [facility] [address], [place], [address], 06/05/2024 11:25:27 06/05/19 25 06/05/2024 urina lysis panel , auto Unknown Analyte Negati ve Not Available [facility] [address], [place], [address], 06/05/2024 11:25:27 06/05/19 25 06/05/2024 urina lysis panel , auto Unknown Analyte Negati ve Not Available [facility] [address], [place], [address], 06/05/2024 11:25:27 06/05/19 25 06/05/2024 urina lysis panel , auto Unknown Analyte Negati ve Not Available [facility] [address], [place], [address], 06/05/2024 11:25:27 06/05/19 25 06/05/2024 urina lysis panel , auto Unknown Analyte Normal Not Available [facility] [address], [place], [address], 06/05/2024 11:25:27 06/05/19 25 06/05/2024 urina lysis panel , auto Unknown Analyte Normal Not Available [facility] [address], [place], [address], 06/05/2024 11:25:27 06/05/19 25 06/05/2024 urina lysis panel , auto Unknown Analyte Negati ve Not Available [facility] [address], [place], [address], 06/05/2024 11:25:27 06/05/19 25 06/05/2024 urina lysis panel , auto Unknown Analyte Negati ve Not Available [facility] [address], [place], [address], 06/05/2024 11:25:27 06/05/19 25 06/05/2024 urina lysis panel , auto Unknown Analyte Normal Not Available [facility] [address], [place], [address], 06/05/2024 11:25:27 06/05/19 25 06/05/2024 urina lysis panel , auto Unknown Analyte Normal 1 mg/dl Not Available [facility] [address], [place], [address], 06/05/2024 11:25:27 06/05/19 25 06/05/2024 urina lysis panel , auto Unknown Analyte Negati ve Not Available [facility] [address], [place], [address], 06/05/2024 11:25:27 06/05/19 25 06/05/2024 urina lysis panel , auto Unknown Analyte Negati ve Not Available [facility] [address], [place], [address], 06/05/2024 11:25:27 06/05/19 25 06/05/2024 urina lysis panel , auto Unknown Analyte Trace Not Available [facility] [address], [place], [address], 06/05/2024 11:25:27 06/05/19 25 06/05/2024 urina lysis panel , auto Unknown Analyte Negati ve Not Available [facility] [address], [place], [address], 06/05/2024 11:25:27 Result Notes None recorded. Procedures Surgical History Date Name Laterality Status Provider Name and Address Organization Details Recorded Time Post Void Residual; Ultrasound completed Jessica Stone [facility] 06/05/2024 11:25:12 Imaging Results None recorded. Procedure Notes None recorded. Medical Equipment None Reported. Allergies Allergen ID Allergen Name Allergen Category Reaction Reaction Severity Criticality Documentation Date Start Date Code Code System Note Provider Name and Address Organization Details Recorded Time [id number] amoxicill in medicatio n Not available Not available Not available 06/05/2024 [facility]12 [id number] erythromy vitaliy medicatio n Not available Not available Not available 06/05/2024 4053 [facility] Medications Name Sig Start Date [...] Updated DateTime 06/05/2024 160.02 cm 26.6 kg/m2 99364.86 g Jessica Vaca [facility] 06/05/2024 11:23:41 Social History Question Answer [...] SNOMED-CT Code Diagnosis ICD10 Code Diagnosis Note [id number] ASCENCION PANTOJA PA-C [facility] [address] [place] [address] 06/05/2024 10:43:49 06/05/2024 11:29:03 Acute urinary tract infection [id number] N39.0 Health Concerns Section Related Observation LastModified by Organization Detai ls LastModified Time None Recorded Concern Status LastModified by Organization Details LastModified Time None Recorded Advance Directives Directive None Recorded Payers Insurance Date Sequence Insurance Name Policy Number Policy Buckley Covered Member ID Buckley Member ID Guarantor Name 06/05/2024 1 PATRICK-MICHELLE (PPO) [id number] Norma Calvin [id number] Norma Calvin OBGyn Episode No OBEpisode recorded.
--- OUTSIDE RECORDS SUMMARY | 2024-12-07 11:59 | XMS_ITS | Clinical Summary ---
Author Organization [facility] Address [address] [place], [place] [address] Care Team Providers Care Dependency Case Manager Name Role Phone Unavailable Primary Care Provider Unavailabl e Allergies Active Allergy Reactions Criticality Noted Date Comments Amoxicillin Anaphylaxis High 08/27/2019 Erythromycin Anaphylaxis High 08/27/2019 Immunizations Immunization Administration Dates Next Due Hep B Ped/Adolescent 01/13/1997,08/07/1996,07/10 MMR 07/10/1996 Td (Adult), 2 Lf Tetanus Tox oid, Preservative Free, Adsorbed 08/21/2002 Tdap 09/16/2015 Social History Tobacco Use Types Packs/Day Years Used Date Smoking Tobacco: Never Assessed Comments Unknown Sex and Gender Information Value Date Recorded Sex Assigned at Not on file Legal Sex Female 10:40 PM EDT Gender Identity Not on file Sexual Orientation Not on file Last Filed Vital Signs Vital Sign Reading Time Taken Comments Blood Pressure 112/87 04/17/2022 4:32 PM EST Pulse 66 04/17/2022 4:32 PM EST Temperature - - Respiratory Rate 16 04/17/2022 4:32 PM EST Oxygen Saturation 100% 04/17/2022 4:32 PM EST Inhaled Oxygen Concentration - - Weight 70.3 kg (155 lb) 04/17/2022 2:08 PM EST Height 160 cm (5' 3 ) 04/17/2022 2:08 PM EST Body Mass Index 27.46 04/17/2022 2:08 PM EST Plan of Treatment Health Maintenance Due Date Last Done Comments Cervical Cancer Screening 2012 HPV Vaccine (1 - 3-dose SCDM series) 2018 Annual SDOH Screening 05/13/2024 Influenza Vaccine (#1) 2025 Tdap/Td Vaccine >11 yo (3 - Td or Tdap) 09/15/2025 09/16/2015, 08/21/2002 Hepatitis B (HepB) Vaccine Completed 01/13, 08/07/1996, 07/10/1996 Haemophilus Influenzae Type B (Hib) Vaccine Aged Out No longer eligible b ased on patient's age to complete this topic Hepatitis A (HepA) Vaccine Aged Out N o longer eligible based on patient's age to complete this topic Meningococcal ACWY Aged Out No longer eligible based on patient's age to complete this topic Pneumococcal Vaccines 6-49 y o Risk Aged Out No longer eligible b ased on patient's age to complete this topic Polio (IPV) Aged Out No longer eligi ble based on patient's age to complete this topic Rotavirus (RV) Vaccine Aged Out No lo nger eligible based on patient's age to complete this topic Insurance [facility]
--- OUTSIDE RECORDS SUMMARY | 2024-12-07 11:59 | XMS_ITS | Encounter Summary ---
Author Organization [employer] ([place], [place], [place], [place]) Address [address] [place] [address] Care Team Providers Care Flap Maker Name Role Phone Unavailable Primary Care Provider Unavailabl e Reason for Visit * Reason Comments Medication Refill Encounter Details Date Type Department Care Team (Late st Contact Info) Description 11/26/2022 Refill [facility] Cardiology [address] [place], [place] [phone] [place] [address] [place] [address] [address] [place] [address] Social History Tobacco Use Types Packs/Day Years Used Date Smoking Tobacco: Never Assessed Comments Unknown Sex and Gender Information Value Date Recorded Sex Assigned at Not on file Legal Sex Female 6:06 PM CDT Gender Identity Not on file Sexual Orientation Not on file documented as of this encounter Miscellaneous Notes * Telephone Encounter - Lyndsey Chinchilla MA - 11/29/2022 9:40 AM EDT Future appt / [place] on 11/30/22 I sent in refill for Atenolol as requested. documented in this encounter Plan of Treatment Not on file documented as of this encounter Visit Diagnoses Not on filedocumented in this encounter
--- OUTSIDE RECORDS SUMMARY | 2024-12-07 11:59 | XMS_ITS | Clinical Summary ---
Author Organization [facility] [employer] Address [address] [place] [address] Care Team Providers Care Sleeper Cutter Name Role Phone Provider, No Known Primary Care Provider Unavail able Allergies Active Allergy Reactions Criticality Noted Date Comments Amoxicillin Anaphylaxis High 08/27/2019 Erythromycin Anaphylaxis High 08/27/2019 Medications * This document contains information received from the source organization and may not represent a complete record from that organization. atenolol (TENORMIN) 25 MG tablet Take 12.5 mg by mouth Daily. 12/13/2021 Active hydrOXYzine (ATARAX) 25 MG tablet Take 25 mg by mouth 3 (Three) Times a Day As Needed. 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 30 tablet 2 05/07/2023 Active Active Problems Problem Noted Date Diagnosed Date IUD check up 03/14/2022 Resolved Problems Problem Noted Date Diagnosed Date Resolved Date (normal spontaneous vaginal delivery) 08/29/2019 12/27/2021 Immunizations Immunization Administration Dates Next Due Hep B, Adolescent or Pediatric 01/13/1997,1996,07/10/1996 MMR 07/10/1996 Td (TDVAX) 08/21/2002 Tdap 09/16/2015 Family History Medical History Relation Name Comments Pancreatic cancer Father Diabetes Paternal Grandfather Breast cancer Neg Hx Colon cancer Neg Hx Ovarian cancer Neg Hx Uterine cancer Neg Hx Relation Name Status Comments Father Paternal Grandfather Social History Tobacco Use Types Packs/Day Years Used Date Smoking Tobacco: Never Smokeless Tobacco: Never Alcohol Use Standard Drinks/Week Comments Not Currently 0 (1 standard drink = 0.6 oz pur e alcohol) PHQ-2 Answer Date Recorded Retired PHQ-9: Brief Depression Severity Measure Score 11 05/07/2023 Clayton Depression Scale Answer Date Recorded Clayton Depression Scale Total 4 08/28/2019 The thought of harming myself has occurred to me . Never 08/28/2019 Abuse Screen Answer Date Recorded Unsafe at Home or Work/School Not on file Feels Threatened by Someone? Not on file 01/2023 Does Anyone Keep You from Co ntacting Others or Doint Things Outside the Home? Not on file 02/18/2023 Physical Sign of Abuse Present Not on file 1 Housing Stability Answer Date Recorded Current Living Arrangements Not on file 01/2023 Potentially Unsafe Housing Conditions Not on roseanne e 02/18/2023 Family and Community Support Answer Enrique e Recorded Help with Day-to-Day Activities Not on file 02/18/2023 Lonely or Isolated Not on file 02/18/2023 Employment Answer Date Recorded Do you want help finding or keeping work or a talia b? Not on file 02/18/2023 Disabilities Answer Date Recorded Concentrating, Remembering, or Making Decisions Difficulty Not on file 02/18/2023 Doing Errands Independently Difficulty Not on fi le 02/18/2023 Education Answer Date Recorded Help with school or training? Not on file Preferred Language Not on file 02/18/2023 PHQ-2 Answer Date Recorded Retired PHQ-9: Brief Depression Severity Measure Score 11 05/07/2023 Comments No Sex and Gender Information Value Date Recorded Sex Assigned at Not on file Legal Sex Female 1:17 PM EDT Gender Identity Not on file Sexual Orientation Not on file Last Filed Vital Signs Vital Sign Reading Time Taken Comments Blood Pressure 112/60 03/14/2022 2:11 PM EDT Pulse 86 08/29/2019 8:00 AM EDT Temperature 36.8 C (98.3 F) 08/29/2019 8:00 AM EDT Respiratory Rate 16 08/29/2019 8:00 AM EDT Oxygen Saturation - - Inhaled Oxygen Concentration - - Weight 71 kg (156 lb 9.6 oz) 03/14/2022 2:11 PM EDT Height 160 cm (5' 3 ) 03/14/2022 2:11 PM EDT Body Mass Index 27.74 03/14/2022 2:11 PM EDT Plan of Treatment Health Maintenance Due Date Last Done Comments ANNUAL PHYSICAL 10/25/2020 Annual Gynecologic Pelvic an d Breast Exam 12/28/2022 12/27/2021 COVID-19 Vaccine (1 - 2023-2 5 season) 2024 INFLUENZA VACCINE 02/10/2025 TDAP/TD VACCINES (3 - Td or Tdap) 09/15/2025 09/16/2015, 08/21/2002 HEPATITIS C SCREENING Completed 02/04/2019 Pneumococcal Vaccine 0-49 Aged Out No longer eligible based on patient's age to complete this topic Procedures Procedure Name Priority Date/Time Associated Diagnosis Comments HEPATITIS C ANTIBODY Routine 02/04/2019 from Last 3 Months or Most Recently Relevant to Health Maintenance Results * Hepatitis C Antibody (02/04/2019) External Hepatitis C Ab neg Blood Historical Provider LAB BLOOD ORDERABLES Demetria l Result from Last 3 Months or Most Recently Relevant to Health Maintenance Advance Directives * CPR (Attempt to Resuscitate) (Latest Code Status on File) Date Activated Date Inactivated Comments 08/28/2019 4:32 PM 08/29/2019 5:12 PM Question Answer Comments Code Status (Patient has no pulse and is not breathing): CPR (Attempt to Resuscitate) Medical Interventions (Patie nt has pulse or is breathing): Full * CPR (Attempt to Resuscitate) Date Activated Date Inactivated Comments 08/27/2019 9:53 PM 08/28/2019 4:32 PM Question Answer Comments Code Status (Patient has no pulse and is not breathing): CPR (Attempt to Resuscitate) Medical Interventions (Patie nt has pulse or is breathing): Full Care Teams Sleeper Cutter Relationship Specialty Start Date End Date Provider, [place] [address] PCP - General 08/05/19
--- OUTSIDE RECORDS SUMMARY | 2024-12-07 11:59 | XMS_ITS | Encounter Summary ---
Author Organization [employer] ([place], [place], [place], [place]) Address [address] [place] [address] Care Team Providers Care Forensic Anthropologist Name Role Phone Unavailable Primary Care Provider Unavailabl e Encounter Details Date Type Department Care Team (Latest Contact Info) Description 11/04/2024 Travel Social History Tobacco Use Types Packs/Day Years [...] Date Cheng rded Speak language other than Albanian at home Not on file 05/31/2023 Want [...]
--- OUTSIDE RECORDS SUMMARY | 2024-12-07 11:59 | XMS_ITS | Encounter Summary ---
Author Organization [employer] ([place], [place], [place], [place]) Address [address] [place] [address] Care Team Providers Care District Manager Primary Care Sales Name Role Phone Unavailable Primary Care Provider Unavailabl e Reason for Visit * Reason Comments Medication Refill Encounter Details Date Type Department Care Team (Late st Contact Info) Description 10/23/2022 Refill [facility] Cardiology [address] [place], [place] [phone] [place] [address] [place] [address] [address] [place] [address] Social History Tobacco Use Types Packs/Day Years Used Date Smoking Tobacco: Never Assessed Comments Unknown Sex and Gender Information Value Date Recorded Sex Assigned at Not on file Legal Sex Female 6:06 PM CDT Gender Identity Not on file Sexual Orientation Not on file documented as of this encounter Miscellaneous Notes * Telephone Encounter - Lyndsey Chinchilla - 10/30/2022 3:59 PM EDT lv was 09/29/21 w/ Dr Sibley I sent in a 30 day supply to pts pharmacy but pt needs to be scheduledw/ Dr Sibley, his PA or new provider teresa documented in this encounter Plan of Treatment Not on file documented as of this encounter Visit Diagnoses Not on filedocumented in this encounter
--- OUTSIDE RECORDS SUMMARY | 2024-12-07 11:59 | XMS_ITS | Clinical Summary ---
Author Organization [employer] ([place], [place], [place], [place]) Address [address] [place] [address] Care Team Providers Care Crew Trainer Name Role Phone Unavailable Primary Care Provider Unavailabl e Allergies Active Allergy Reactions Criticality Noted Date Comments Amoxicillin Anaphylaxis High 08/27/2019 Erythromycin Anaphylaxis High 08/27/2019 Medications atenoloL (TENORMIN) 25 MG tablet Take 0.5 tablets (12.5 mg total) by mouth daily. 45 tablet 3 03/04/2024 Active Encounters Date Type Department Care Team Description 11/04/2024 10:30 AM EDT Clinical Support [facility] Electrophysiology [address] [place] [address] Carmen Luo MA Palpitations (Primary Dx) 11/04/2024 Travel 11/04/2024 Orders Only [facility] Cardiology [address] [phone] Octavio Alexis APRN Palpitations (Primary Dx) from Last 3 Months Family History Medical History Relation Name Comments Heart attack Paternal Grandmother Relation Name Status Comments Paternal Grandmother Social History Tobacco Use Types Packs/Day Years [...] 03/04/2024 1:49 PM EDT Plan of Treatment Health Maintenance Due Date Last Done Comments Depression Screening (12+) 2003 HIV Screening 2006 Hepatitis C Screening 2009 Pap Smear 2012 COVID-19 VACCINE ( - 2023-2 5 season) 2024 Influenza Vaccine (#1) 2025 Tobacco Cessation Counseling and Screening (12+) 03/04/2025 03/04/2024 DTAP/TDAP/TD VACCINES (3 - T d or Tdap) 09/15/2025 09/16/2015, 08/21/2002 Pneumococcal Vaccine: 0-49 Years Aged Out No longer eligible b ased [...]
== END 2024-12-03 23:59 ==
LOC: LAB.DROPOF 12-07 11:57
PROVIDERS: Visit Provider Nurse Practitioner Family
DX: R30.0 Dysuria (principal)
CPT/HCPCS: 87086; 87088; 87186